=== PATIENT | female | born 1945 | race Caucasian/White ===

== ENCOUNTER → 2023-07-31 12:52 | Outpatient (REF) | payer MEDICARE, OTHER, SELFPAY | LOC: HWRAD 12:52 | PROVIDERS: ATTENDING PHYSICIAN Internal Medicine Geriatric Medicine | DX: Z12.31 Encounter for screening mammogram for malignant neoplasm of breast (principal); Z78.0 Asymptomatic menopausal state | CPT/HCPCS: 77063; 77067; 77080 ==

== ENCOUNTER → 2023-11-27 13:20 | Outpatient (REF) | payer MEDICARE, OTHER, SELFPAY | LOC: HWRAD 13:20 | PROVIDERS: ATTENDING PHYSICIAN Internal Medicine Rheumatology; FAMILY PHYSICIAN Internal Medicine Geriatric Medicine | DX: M15.9 Polyosteoarthritis, unspecified (principal); M25.50 Pain in unspecified joint; M81.0 Age-related osteoporosis without current pathological fracture | CPT/HCPCS: 72040; 72110; 73030; 73560; 73565 ==

== ENCOUNTER 2024-02-11 17:40 | Inpatient (IN) | payer MEDICARE, OTHER, SELFPAY ==
[2024-02-11] VITALS (14 sets, daily range): BP systolic 88–184; BP diastolic 58–91; PULSE 81–106; BMI 19.6; BMI 19.3
--- NOTE | 2024-02-11 12:23 | ED.GENMED ---
History of Present Illness
General
Chief Complaint: Fall
Source: patient and family (daughter at bedside)
Exam Limitations: altered mental status
Time Seen by Provider: 02/11/24 12:02
History of Present Illness
History of Present Illness:
78 yo female from [facility] w h/o HTN, GERD, anxiety/depression, states 'I took a shower, got out, got dizzy and collapsed, I hit the wall.' Denies LOC. Has headache, neck pain, denies CP, SOB, abdominal pain.
Past History
Past History
ED Past Medical History: GERD, HTN, Psychiatric (depression, anxiety) and Other (Chronic neck issues, Duodenitis, hyponatremia)
ED Past Surgical History: Orthopedic (orthovisc injections, ILESI to C7-T1 x 3)
Social History
Tobacco: Non-smoker
Alcohol: None
Personal:
Living: assisted living
Employment: Retired
Family History
Family History: Other (reviewed and non-contributory)
Review of Systems
Review of Systems
Allergies reviewed?: Yes
All Other Systems: ROS reviewed and negative except as documented in HPI and ROS
Constitutional: Denies fever
Respiratory: Denies trouble breathing
Cardiac: Denies chest pain or syncope
ABD/GI: Denies abdominal pain, nausea, vomiting or diarrhea
: Denies dysuria
Musculoskeletal: Reports neck pain; Denies edema or back pain
Skin: Reports no symptoms
Neurological: Reports headache; Denies dizzy, weakness or numbness
Psychiatric: Reports anxiety
Phy Exam
Physical Exam
Physical Exam:
GENERAL: No acute distress. A&Ox3.
CONSTITUTIONAL: Afebrile.
EYES: clear, conjunctivae normal, PERRL
ENMT: moist mucus membranes, Pharynx nl, TMs normal
RESPIRATORY: Regular respirations, nonlabored, lungs clear.
CARDIOVASCULAR: Regular rate and rhythm, no murmurs, no rubs.
GI: Soft, nontender, normal BS
MUSCULOSKELETAL: Body is stiff with movements, needs lots of encouragement to move. Bilateral paracervical tenderness posteriorly. Axial load negative. Well perfused.
SKIN: Warm, dry, pink
PSYCH: Very anxious mood and affect. Well kept, slow to answer, hesitates, seems confused and unable to articulate answers.
NEUROLOGIC: Awake, alert. Cannot state where she is. CN 2-12 intact. She is tremulous, holds body stiffly. Strength equal throughout with hand grasps 3/5, dorsi and plantar flexion 3/5. Follows all commands. No focal neurological deficits
Course
Orders/Labs/Results
Orders:
Orders
02/11/24 12:02
Electrocardiogram (*1) Urgent
Reason for Study: Syncope
EKG- Treatment ONCE
02/11/24 12:04
Complete Blood Count/With Diff Urgent
Troponin I Urgent
02/11/24 12:20
CT Head W/o Iv Contrast Urgent
Comment:
Reason For Exam: confused after fall
Cervical Spine wo Contrast CT [CT Cervical Spine W/o Iv Contr] Urgent
Comment:
Reason For Exam: pain after fall
02/11/24 13:28
Comprehensive Metabolic Panel Urgent
Serum Osmolality Urgent
Comment: ADD ON
TSH Reflex To Free T4 Urgent
Comment: ADD ON
02/11/24 13:47
Ketorolac [Toradol] 15 mg IV NOW STA
02/11/24 13:48
Straight cath- Treatment ONCE
Ketorolac [Toradol] 15 mg .ROUTE .STK-MED ONE
02/11/24 14:00
Osmolality, Random Urine Urgent
Date Specimen was Collected: 02/11/24
Time Specimen was Collected: 12:26
Comment: ADD ON
Urinalysis Reflex To Culture Urgent
Date Specimen was Collected: 02/11/24
Time Specimen was Collected: 12:26
Urine Sodium Urgent
Date Specimen was Collected: 02/11/24
Time Specimen was Collected: 12:26
Comment: ADD ON
02/11/24 14:25
Sacrum/Coccyx 2 View CR [CR Sacrum/coccyx Min 2 View] Urgent
Comment:
Reason For Exam: pain after fall
02/11/24 16:12
Orthostatic VS- Treatment ONCE
02/11/24 16:41
0.9% Sodium Chloride 1000 ml [Nss] 1,000 ml IV BOLUS
02/11/24 16:47
Add On- LAB Urgent
Tests Added?: TSH w/Reflex
02/11/24 16:48
Add On- LAB Urgent
Tests Added?: urine osmo, serum osmo, urine sodium
02/11/24 17:01
NEPHROLOGY CONSULT Urgent
Consulting Provider: Val Logan
Was physician already notified: Yes
Reason for consult: symptomatic hyponatremia
02/11/24 17:29
Admit/Transfer Patient As Directed
Co-Sign Provider:
Level of Care: Inpatient admission
Assign to:: Telemetry
Physician / Group: Harman
Diagnosis: Orthostatic Hypotension
Reason for Telemetry: Arrhythmia
Date to Stop Telemetry: 02/14/24
Time to Stop Telemetry: 11:00
Reason for Hospitalization: IVFs
Expected length of stay greater than two midnights?: Yes
ELOS- Estimated Length of Stay in days: 3
I certify the patient meets the requirements for IP care: Yes
02/11/24 17:30
Code Status As Directed
Resuscitation Status: Full Code
PRN Pain Medication Management As Directed
May give lesser potent ordered pain med per pt: Yes
preference::
Protocol:: Medication orders for pain may be administered in a
manner that supports deferring to patient preference
when the pt is:
- Requesting an ordered lesser potent pain medication.
Least to most potent pain medications are defined
as: acetaminophen < NSAID < tramadol < opioids
(morphine, oxycodone, hydromorphone).
- Requesting a lesser dose of the same medication IF
ORDERED.
- Requesting a less intrusive route of administration
if both routes are prescribed by the provider (PO <
IV).
02/14/24 11:00
DC Protocol for Telemetry ONCE
Abnormal Lab Results
02/11/24 02/11/24 02/11/24
12: 13:28 14:00
RBC 4.07 L 10^6/uL
(4.20-5.40)
Hgb 11.9 L g/dL
(12.0-16.0)
Hct 35.2 L %
(37.0-47.0)
MPV 11.1 H fL
(7.4-10.4)
Immature Gran % 0.6 H %
(0-0.5)
Sodium 128 L mmol/L
(135-145)
Chloride 91 L mmol/L
(98-107)
BUN 20 H mg/dl
(7-17)
Glucose 103 H mg/dl
(70-99)
Serum Osmolality 267 L mOsm/kg
(275-300)
Urine Sodium 134 H mmol/L
(30-90)
02/11/24 12:04
02/11/24 13:28
Vital Signs
Initial and Last Documented VS:
Initial Vital Signs
Pulse BP
77 150/77
02/11/24 11:47 02/11/24 11:47
Last Documented Vital Signs
Temp Pulse Resp BP Pulse Ox
96.8 F L 84 23 157/70 95
02/11/24 12:00 02/11/24 18:15 02/11/24 12:00 02/11/24 18:00 02/11/24 18:15
MDM/Problems Addressed
Differential Diagnosis Includes:
Hyponatremia, toxic metabolic encephalopathy, dehydration, UTI
MDM/Problems Addressed:
78 yo female from [facility] w h/o HTN, GERD, anxiety/depression, SIADH/hyponatremia, states 'I took a shower, got out, got dizzy and collapsed, I hit the wall.' Denies LOC. Has headache, neck pain, denies CP, SOB, abdominal pain.
Daughter at bedside agrees she is not acting herself, states 'she is extremely anxious' has history of low sodium.
febrile, VSS
1:30 PM:
Radiology report read: Head CT and cervical spine CT show no acute abnormalities
CBC with no clinically significant abnormality
CMP hemolyzed and is being redrawn
In to re evaluate pt. Updated daughter and pt on results
Pt is much more lucid, calm, making sense. Has neck pain and headache. Has difficulty swallowing pills typically. Toradol IV ordered.
She is drinking water.
2:05 p.m.
CMP: Na 128, Cl 91 this is her baseline
On Venlafaxine chronically, not thought to be cause of hyponatremia per Nephrology note of 04/01/22
Has used Samsca in the past.
Pt has chronic sacral pain since injury many years ago, is requesting xray of tailbone as it hurts worse after this fall.
Palpation of this area elicits no significant pain
Xray sacrum/coccyx shows nothing acute
4:45 p.m.
Pt dizzy OOB, positive orthostatics
Plan: Admit with symptomatic hyponatremia,
Hospitalist notified of admission.
Nephrology consult in.
*EKG
EKG Intrepretation Date: 02/11/24
Interpretation: normal
Heart Rate: 84
Rate: normal
Rhythm: sinus
Coleridge: normal axis
Interval: normal interval
QRS Pattern: normal QRS
Ischemia: no ischemia
*Critical Care Note
Total Time (30-74mins, 75-104mins- exclusive of procedures): Not Applicable
ED Attending Note
-
Portions of this chart may have been created with voice recognition software.� Occasional wrong word or��sound alike� substitutions may have occurred due to the inherent limitations of voice recognition software.
Discharge Plan
Departure
Patient Disposition: Admit
Date of Disposition: 02/11/24
Time of Disposition: 16:42
Admit to: Med/Surg
Presentation/result/management discussed w/ accepting MD/DO: Hospitalist
Condition: Fair
Discharge Problem:
Hyponatremia, Fall, Orthostatic dizziness
Interventions
Interventions:
*Risk Screen - Suicide Last Done: 02/11/24 11:47
*General Assessment Last Done: 02/11/24 11:47
*Neglect/Abuse Screening Last Done: 02/11/24 11:47
ED- Fall Risk Assessment Last Done: 02/11/24 18:11
*ED COVID-19 Vaccine History Last Done: 02/11/24 12:00
ED-Musculoskeletal Assessment Last Done: 02/11/24 12:01
ED- Neurological Assessment Last Done: 02/11/24 11:47
ED-Skin Assessment Last Done: 02/11/24 11:47
[2024-02-11 12:26] LABS: % Basophils 0.5 % (0-2); % Eosinophils 1.8 % (0-6); % Immature Granulocytes 0.6 % (0-0.5); % Lymphocytes 22.2 % (20.5-51.1); % Monocytes 8.5 % (1.7-9.3); % Neutrophils 66.4 % (42.2-75.2); Absolute Eosinophils 0.1 10^3/uL (0-0.7); Absolute Lymphocytes 1.4 10^3/uL (1.2-3.4); Absolute Monocytes 0.5 10^3/uL (0.1-0.6); Absolute Neutrophils 4.2 10^3/uL (1.4-6.5); Hematocrit 35.2 % (37.0-47.0); Hemoglobin 11.9 g/dL (12.0-16.0); Mean Corp Hgb Conc. 33.8 g/dL (33.0-37.0); Mean Corpuscular Hgb 29.2 pg (27.0-31.0); Mean Corpuscular Volume 86.5 fL (81.0-99.0); Mean Platelet Volume 11.1 fL (7.4-10.4); Nucleated Red Blood Cells % 0 %; Platelet Count 175 10^3/uL (130-400); Red Blood Cell Count 4.07 10^6/uL (4.20-5.40); Red Cell Dist. Width 13.1 % (11.5-14.5); White Blood Cell Count 6.3 10^3/uL (4.8-10.8)
[2024-02-11] MEDS: TORADOL 15 MG IV (13:50)
[2024-02-11 14:02] LABS: ALT (SGPT) 16 U/L (0-35); AST (SGOT) 27 U/L (14-36); Albumin 4.7 g/dl (3.5-5.0); Alkaline Phosphatase 64 U/L (38-126); Blood Urea Nitrogen 20 mg/dl (7-17); Calcium 9.3 mg/dl (8.4-10.2); Carbon Dioxide 25 mmol/L (22-30); Chloride 91 mmol/L (98-107); Estimated Creatinine Clearance 68 ml/min; Glucose 103 mg/dl (70-99); Potassium 4.3 mmol/L (3.5-5.1); Sodium 128 mmol/L (135-145); Total Bilirubin 0.5 mg/dl (0.2-1.3); Total Protein 7.7 g/dl (6.3-8.2); eGFR > 60.00
[2024-02-11 14:10] LABS: Troponin I < 0.012 ng/ml
[2024-02-11 14:14] LABS: Urine Albumin Trace (Neg - Trace); Urine Bilirubin Negative (Negative); Urine Character Clear (Clear); Urine Color Yellow; Urine Glucose Negative (Negative); Urine Ketone Negative (Negative); Urine Leukocyte Negative (Negative); Urine Nitrite Negative (Negative); Urine Occult Blood Negative (Negative); Urine Urobilinogen Negative (Neg - 1+)
--- NOTE | 2024-02-11 16:49 | HPS.HSE ---
Family Physician
-
Family Physician: Jody Cervantes
Chief Complaint
-
Dizziness and Fall
History of Present Illness
Patient is a 78 y/o female past medical history of hypertension, hyponatremia, anxiety and BPPV who presents with dizziness resulting in a fall. Patient was getting out of the shower when developed dizziness causing her to loss her balance and
fall. She states during the fall she hit head on the wall. Eventually she was able to reach her call button, EMS arrived and they transported her to the emergency department for evaluation. While in the ED patient was found to be orthostatic.
During my evaluation patient reports significant dizziness with head movements. 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 She follows a strict fluid restriction at home due to her prior history of hyponatremia.
Medical History
Past Medical History
Past Medical History: Reports Other
Additional Past Medical History:
Essential Hypertension
Chronic Hyponatremia
Anxiety/Depression
GERD
BPPV
Spinal Stenosis
Glaucoma
Osteoporosis
Past Surgical History: Reports Other
Additional Past Surgical History:
Right Shoulder Surgery
Left Knee Surgery
Social History
Tobacco: Non-smoker
Personal:
Living: Other ([facility])
Family History
Family History: Not pertinent
Allergies / Home Medications
Allergies reflects when Allergies were last updated in [employer].
Home Medications with original date entered in [employer]
Allergy/Medication List:
Allergies
Allergy/AdvReac Type Severity Reaction Status Date / Time
amoxicillin [From Augmentin] Allergy DIARRHEA Verified 02/18/23 09:11
caffeine Allergy ABDOMINAL Verified 02/18/23 09:11
PAIN
cephalexin [From Keflex] Allergy Nausea / Verified 02/18/23 09:11
Vomiting
clavulanic acid Allergy DIARRHEA Verified 02/18/23 09:11
[From Augmentin]
grass pollen Allergy Unknown Verified 02/18/23 09:11
mold Allergy Unknown Verified 02/18/23 09:11
Sulfa (Sulfonamide Allergy HEADACHE Verified 02/18/23 09:11
Antibiotics)
Tetracyclines Allergy Nausea / Verified 02/18/23 09:11
Vomiting
Home Medications
fluticasone propionate 50 mcg/actuation nasal spray,suspension 1 spray intranasal DAILY PRN congestion 03/31/22
latanoprost 0.005 % eye drops 1 drp BOTH EYES HS 03/31/22
pantoprazole 40 mg tablet,delayed release 40 mg PO QPM 03/31/22
venlafaxine 37.5 mg capsule,extended release 24 hr 37.5 mg PO HS 03/31/22
venlafaxine 75 mg capsule,extended release 24 hr 75 mg PO HS 03/31/22
Bifidobacterium infantis 4 mg capsule (Align (B.infantis)) 4 mg PO NOON 02/11/24
acetaminophen 325 mg tablet (Tylenol) 650 mg PO Q4HPRN PRN mild pain 02/11/24
cholecalciferol (vitamin D3) 25 mcg (1,000 unit) tablet (Vitamin D3) 25 mcg PO NOON 02/11/24
cyanocobalamin (vitamin B-12) 1,000 mcg tablet 1,000 mcg PO NOON 02/11/24
denosumab 60 mg/mL subcutaneous syringe (Prolia) 60 mg SC [id number] 02/11/24
rizatriptan 10 mg tablet 0 mg PO .COMPLEX 02/11/24
sucralfate 1 gram tablet (Carafate) 1 g PO DAILY@1000 02/11/24
Review of Systems
-
A 12 point ROS was completed and negative except as noted: Yes
Constitutional: Denies Chills
Respiratory: Denies Cough or Trouble Breathing
Cardiac: Denies Chest Pain
Physical Exam
Vital Signs
Vital Signs
Temp Pulse Resp BP Pulse Ox
96.8 F L 77 23 155/73 99
02/11/24 12:00 02/11/24 14:30 02/11/24 12:00 02/11/24 14:00 02/11/24 14:30
Physical Exam
General: Comfortable and Conversant
HEENT: NormoCephalic, Anicteric and Atraumatic
Respiratory: Clear and Non Labored Respirations
Cardiac: S1/S2 and Regular Rhythm
GI: Soft and Non Tender
Rectal: Deferred by Provider
Musculoskeletal: No Clubbing, No Cyanosis and No Edema
Skin: Warm and Dry
Neuro: Awake, Alert, Oriented and Nonfocal/grossly intact
Psych: Calm
Laboratory Results
-
02/11/24 12:04
02/11/24 13:28
Laboratory Results
Total Bilirubin 0.5 mg/dl (0.2-1.3) 02/11/24 13:28
AST 27 U/L (14-36) 02/11/24 13:28
ALT 16 U/L (0-35) 02/11/24 13:28
Alkaline Phosphatase 64 U/L (38-126) 02/11/24 13:28
Troponin I < 0.012 ng/ml 02/11/24 12:04
Data Reviewed
-
CT Scan: Report Reviewed by me
Lab Data: Labs Reviewed by me
Impression/Plan
-
Orthostatic Hypotension
-Continue IVFs
-Monitor orthostatic VS
-Add MARIA D Stockings
Chronic Hyponatremia
-Sodium at baseline
BPPV
-Patient reporting dizziness worse with movement
-Add meclizine PRN
-Consult PT/OT
Anxiety/Depression
-Continue venlafaxine
GERD
-Continue Protonix and Carafate
DVT proph: SCDs
Code Status: Full Code
[2024-02-11] MEDS: NSS 1000 IV ×2 (16:55→21:58)
[2024-02-11 17:08] LABS: Osmolality Urine 515 mOsm/kg (300-900)
[2024-02-11 17:15] LABS: Osmolality Serum 267 mOsm/kg (275-300)
[2024-02-11 17:26] LABS: Urine Sodium 134 mmol/L (30-90)
[2024-02-11 17:50] LABS: TSH Reflex To Free T4 1.36 uIU/ml (0.47-4.68)
--- NOTE | 2024-02-11 17:58 | W.PN.UPDATE ---
Update Note
Progress Note Update
HPI: 78 y/o female past medical history of hypertension, hyponatremia, anxiety and BPPV; who presented with dizziness resulting in a fall.
Patient was getting out of the shower when developed dizziness causing her to loss her balance and fall. She states during the fall she hit head on the wall. Eventually she was able to reach her call button, EMS arrived and they transported her to
the emergency department for evaluation.
While in the ED patient was found to be orthostatic. 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 She follows a strict fluid restriction at home due to her prior history of hyponatremia.
A/P:
# Orthostatic Hypotension
Continue IVFs
Monitor orthostatic VS
Add MARIA D Stockings
# Chronic Hyponatremia
Sodium at baseline
Renal consulted by ED
# BPPV
Patient reporting dizziness worse with movement
Add meclizine PRN
Consult PT/OT
# Anxiety/Depression
Continue venlafaxine
# GERD
Continue Protonix and Carafate
DVT proph: SCDs
Code Status: Full Code
--- NOTE | 2024-02-11 20:00 | TRANSFER ---
pt arrived from ED via stretcher accompanied by ED staff. pt walked from stretcher to bed with assistance and RW. no complaints of dizziness upon ambulating. orthostatic VS completed- BP laying 184/91, HR 81, sitting 179/81, HR 82, standing 148/80,
HR 94. other VSS at this time. pt AAOx3, call bateman within reach, bed alarm placed. will continue to monitor.
[2024-02-11] MEDS: PROTONIX 40 MG PO (20:35)
[2024-02-11] MEDS: TYLENOL 650 MG PO (20:35)
[2024-02-11] MEDS: EFFEXOR XR 75 MG PO (20:36)
[2024-02-11] MEDS: EFFEXOR XR 37.5 MG PO (20:36)
[2024-02-11] MEDS: XALATAN OPHTHALMIC SOLUTION 1 DROP OPHTH (22:02)
[2024-02-12] VITALS (9 sets, daily range): BP systolic 132–169; BP diastolic 71–85; PULSE 80–98; O2SAT 97; BMI 19.2
[2024-02-12 08:36] LABS: Hematocrit 35.9 % (37.0-47.0); Hemoglobin 12.2 g/dL (12.0-16.0); Mean Corpuscular Hgb 30.1 pg (27.0-31.0); Mean Corpuscular Volume 88.6 fL (81.0-99.0); Mean Platelet Volume 11.6 fL (7.4-10.4); Platelet Count 204 10^3/uL (130-400); Red Blood Cell Count 4.05 10^6/uL (4.20-5.40); Red Cell Dist. Width 13.1 % (11.5-14.5); White Blood Cell Count 5.7 10^3/uL (4.8-10.8)
[2024-02-12 08:55] LABS: Blood Urea Nitrogen 15 mg/dl (7-17); Calcium 7.4 mg/dl (8.4-10.2); Carbon Dioxide 23 mmol/L (22-30); Chloride 97 mmol/L (98-107); Estimated Creatinine Clearance 67 ml/min; Glucose 86 mg/dl (70-99); Potassium 3.6 mmol/L (3.5-5.1); Sodium 129 mmol/L (135-145); eGFR > 60.00
[2024-02-12] MEDS: TYLENOL 650 MG PO ×3 (08:58→20:44)
[2024-02-12] MEDS: CARAFATE 1 GRAM PO ×2 (08:58→09:53)
--- NOTE | 2024-02-12 09:06 | W.PN.HOSP.TC ---
Today's Communication/Plan
-
see A/P
Assessment / Plan
Assessment / Plan
HPI: 78 y/o female past medical history of hypertension, hyponatremia, anxiety and BPPV; who presented with dizziness resulting in a fall.
Patient was getting out of the shower when developed dizziness causing her to loss her balance and fall. She states during the fall she hit head on the wall. Eventually she was able to reach her call button, EMS arrived and they transported her to
the emergency department for evaluation.
While in the ED patient was found to be orthostatic. 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 She follows a strict fluid restriction at home due to her prior history of hyponatremia.
A/P:
# Mechanical fall likely 2/2 Orthostatic Hypotension
# Acute on chronic coccyx pain following fall
CT head , CT Cervical spine and Sacrum/Coccyx XR no acute abnormality or fracture
Pain control with Tylenol PRN, add lidocaine patch to coccyx area for local pain control
s/p IVFs
Added MARIA D Stockings
Monitor orthostatic VS
PT OT eval
# Chronic Hyponatremia
# SAIDH
Sodium at baseline
TSH WNL at 1.36
Renal consulted by ED
# BPPV
Patient reporting dizziness worse with movement
Added meclizine PRN
Consult PT/OT
# Anxiety/Depression
Continue venlafaxine
# GERD
Continue Protonix and Carafate
DVT proph: SCDs
Code Status: Full Code
DW RN
left voicemail to daughter
Anticipated Discharge: 24 - 48 hours
Subjective/Interval History
-
Date of Service: February 12, 2024
Objective Data
-
Labs:
Laboratory Results
02/12/24
07:24
WBC 5.7
Hgb 12.2
Hct 35.9 L
Plt Count 204
Sodium 129 L
Potassium 3.6
Chloride 97 L
Carbon Dioxide 23
BUN 15
Creatinine 0.5 L
Glucose 86
Calcium 7.4 L D
Vital Signs:
Vital Signs
Temp Pulse Resp BP Pulse Ox
36.5 C 84 18 158/85 99
02/12/24 08:14 02/12/24 08:14 02/12/24 08:14 02/12/24 08:14 02/12/24 08:14
I&O
02/11/24 02/12/24 02/13/24
06:59 06:59 06:59
Intake Total 1200 / 1200
Output Total 550 / 550 150 / 150
Balance 650 / 650 -150 / -150
Review of Systems
-
Musculoskeletal: Reports Other (tail bone mild pain)
Physical Exam
-
General: Well Developed, Well Nourished, No Apparent Distress, Comfortable and Conversant
HEENT: Normocephalic, Atraumatic and Moist Mucous Membranes
Respiratory: Clear to Auscultation and Non Labored Respirations; Negative Accessory Resp Muscle Use
Cardiac: Regular Rhythm and S1/S2
GI: Soft, Nontender and Nondistended
Musculoskeletal: No Clubbing, No Cyanosis and No Edema
Neuro: Awake and Alert
Psych: Calm and Intact Judgement/Insight
Data Reviewed
-
Diagnostic Radiology: Report Reviewed by me
CT Scan: Report Reviewed by me
Labs: Labs Reviewed by me
[2024-02-12] MEDS: LIDOCAINE 4% PATCH 1 PATCH TOPICAL (09:53)
[2024-02-12 09:54] LABS: Urine Albumin 2+ (Neg - Trace); Urine Bilirubin Negative (Negative); Urine Character Bloody (Clear); Urine Color Red; Urine Glucose Negative (Negative); Urine Ketone Trace (Negative); Urine Leukocyte 2+ (Negative); Urine Nitrite Negative (Negative); Urine Occult Blood 4+ (Negative); Urine Urobilinogen Negative (Neg - 1+); Urine pH 6.5 (5.0-9.0)
--- NOTE | 2024-02-12 10:02 | PTCARENOTE ---
Addendum entered by Tarah Paulino RN 02/12/24 15:03:
Patient with UTI as per UA. Urine culture pending.
Original Note:
Patient with complaints of painful urination. Patient has bloody urine. MD made aware. Urine culture sent. Started on Levoquin. Complaints of pain in lower back. Lidocaine patch ordered and applied. Tylenol given as ordered.
[2024-02-12 10:24] LABS: Urine Bacteria Many (Negative); Urine Red Blood Cell >100 /HPF (0-2); Urine White Cell >100 /HPF (0-5)
[2024-02-12 10:25] LABS: Urine Squamous Cell SEEN /LPF (Few)
[2024-02-12] MEDS: LEVAQUIN 150 IV (10:32)
[2024-02-12] MEDS: NSS 1000 IV (11:24)
--- NOTE | 2024-02-12 14:28 | W.CON.NEPH ---
Consultation
-
Date/Time Consultation Requested: 02/11/24 1701
Date/Time Consultation Performed: 02/12/24 1415
Requesting Provider: Carly Mayo
Performing Provider: Val Shay
Reason for Consultation: hyponatremia
Medical History
-
Chief Complaint: Dizzniess and fall
History of Present Illness:
78 y/o female past medical history of hypertension, hyponatremia on FR odium baseline 128-130, anxiety/depression on Venlafaxine, osteoporosis on Prolia, GERD on carafate, PPI and BPPV who presents with dizziness resulting in a fall in the bathroom.
Patient was getting out of the shower when developed dizziness causing her to loss her balance and hit head on the wall. Eventually she was able to reach her call button and EMS transported her to the emergency department for evaluation. While in
the ED patient was found to be orthostatic, received 1 L of normal saline bolus. She had done vestibular rehab for BPP in the past.She reports losing her on the January 22. She thinks might be emotionally depressed from it, reports
compliance with the fluid restriction. Labs noted sodium of 128, cr 0.6. Does report mild gross hematuria since last night. Has no CP or sob no fever or chills. No abd pain. no n/v.
Past Medical History
Essential Hypertension
Chronic Hyponatremia
Anxiety/Depression
GERD
BPPV
Spinal Stenosis
Glaucoma
Osteoporosis
Past Surgical History: Other (Right Shoulder Surgery Left Knee Surgery)
Social History
Tobacco: Non-Smoker
Alcohol: None
Personal:
Living: Assisted Living ([facility])
Family History
Family History: Not Pertinent
Allergies / Home Medications
Allergy/AdvReac Type Severity Reaction Status Date / Time
amoxicillin [From Augmentin] Allergy DIARRHEA Verified 02/18/23 09:11
caffeine Allergy ABDOMINAL Verified 02/18/23 09:11
PAIN
cephalexin [From Keflex] Allergy Nausea / Verified 02/18/23 09:11
Vomiting
clavulanic acid Allergy DIARRHEA Verified 02/18/23 09:11
[From Augmentin]
grass pollen Allergy Unknown Verified 02/18/23 09:11
mold Allergy Unknown Verified 02/18/23 09:11
Sulfa (Sulfonamide Allergy HEADACHE Verified 02/18/23 09:11
Antibiotics)
Tetracyclines Allergy Nausea / Verified 02/18/23 09:11
Vomiting
�Medication �Instructions �Recorded �Confirmed �Type
fluticasone propionate 50 1 spray intranasal DAILY PRN 03/31/22 02/11/24 History
mcg/actuation nasal congestion
spray,suspension
latanoprost 0.005 % eye drops 1 drp BOTH EYES HS 03/31/22 02/11/24 History
pantoprazole 40 mg tablet,delayed 40 mg PO QPM 03/31/22 02/11/24 History
release
venlafaxine 37.5 mg 37.5 mg PO HS 03/31/22 02/11/24 History
capsule,extended release 24 hr
venlafaxine 75 mg capsule,extended 75 mg PO HS 03/31/22 02/11/24 History
release 24 hr
Bifidobacterium infantis 4 mg 4 mg PO NOON 02/11/24 02/11/24 History
capsule (Align (B.infantis))
acetaminophen 325 mg tablet 650 mg PO Q4HPRN PRN mild pain 02/11/24 02/11/24 History
(Tylenol)
cholecalciferol (vitamin D3) 25 25 mcg PO NOON 02/11/24 02/11/24 History
mcg (1,000 unit) tablet (Vitamin
D3)
cyanocobalamin (vitamin B-12) 1,000 mcg PO NOON 02/11/24 02/11/24 History
1,000 mcg tablet
denosumab 60 mg/mL subcutaneous 60 mg SC [id number] 02/11/24 02/11/24 History
syringe (Prolia)
rizatriptan 10 mg tablet 0 mg PO .COMPLEX 02/11/24 02/11/24 History
sucralfate 1 gram tablet (Carafate) 1 g PO DAILY@1000 02/11/24 02/11/24 History
Review of Systems
-
All complete 12 point review of system have been inquired and found negative other than stated in HPI
Physical Exam
Vital Signs
Vital Signs
Temp Pulse Resp BP Pulse Ox
97.9 F 98 18 141/82 99
02/12/24 12:11 02/12/24 12:11 02/12/24 12:11 02/12/24 12:11 02/12/24 12:11
Lab Results
WBC 5.7 10^3/uL (4.8-10.8) 02/12/24 07:24
RBC 4.05 10^6/uL (4.20-5.40) L 02/12/24 07:24
Hgb 12.2 g/dL (12.0-16.0) 02/12/24 07:24
Hct 35.9 % (37.0-47.0) L 02/12/24 07:24
Plt Count 204 10^3/uL (130-400) 02/12/24 07:24
Sodium 129 mmol/L (135-145) L 02/12/24 07:24
Potassium 3.6 mmol/L (3.5-5.1) 02/12/24 07:24
Chloride 97 mmol/L (98-107) L 02/12/24 07:24
Carbon Dioxide 23 mmol/L (22-30) 02/12/24 07:24
BUN 15 mg/dl (7-17) 02/12/24 07:24
Creatinine 0.5 mg/dL (0.6-1.0) L 02/12/24 07:24
eGFR > 60.00 02/12/24 07:24
Glucose 86 mg/dl (70-99) 02/12/24 07:24
Calcium 7.4 mg/dl (8.4-10.2) L D 02/12/24 07:24
Albumin 4.7 g/dl (3.5-5.0) 02/11/24 13:28
ct head;
IMPRESSION:
No acute intracranial abnormality.
No acute abnormalities within the cervical spine.
Physical Exam
General: Awake, Alert, Oriented, AOx3, No Distress and Nontoxic
HEENT: EOMI, Anicteric, Facial Symmetry and Neck Supple
Respiratory: Clear, Normal Excursion and Nonlabored Respirations
Cardiac: S1/S2 and Regular Rate/Rhythm
Breast: Deferred by me
Abdomen: Soft, Nontender and Nondistended
Musculoskeletal: No Cyanosis and No Edema
Skin: No Rash
Neuro: Nonfocal/Grossly Intact
Psych: Mood/afflect pleasant, Insight/judgement good and Appropriate
Data Reviewed
-
Labs: Labs Reviewed by me and Discussed with Patient
Assessment/Plan
-
IMP:
Mechanical fall likely 2/2 Orthostatic Hypotension
Chronic Hyponatremia- SAIDH
hematuria-suspected UTI
BPPV
Anxiety/Depression
GERD
Spinal Stenosis
Glaucoma
Osteoporosis
h/o vit D def
h/o migraine
Plan:
A/w fall, orthostatic in ER s/p IVF
chr hyponatremia seem to be stable at baseline
unlikely is the cause of her symptoms
orthostatics improved this am , remains on IVF
encourage solute intake
maintain FR 48 ounces/day
cont TEDs, check cortisol
she is on Velafaxine(has association with SIADH)-follow up with her PCP for alternative out pt
follow calcium level, not sure if accurate, resume vit D
abx for UTI, await U cx, hematuria seem to improve
labs in am
d/w pt
[2024-02-12] MEDS: PROTONIX 40 MG PO (16:49)
[2024-02-12] MEDS: VITAMIN D3 (cholecalciferol) 25 MCG PO (16:49)
[2024-02-12] MEDS: EFFEXOR XR 75 MG PO (20:41)
[2024-02-12] MEDS: EFFEXOR XR 37.5 MG PO (20:41)
[2024-02-12] MEDS: XALATAN OPHTHALMIC SOLUTION 1 DROP OPHTH (20:42)
[2024-02-13] VITALS (7 sets, daily range): BP systolic 129–169; BP diastolic 61–90; PULSE 78–84; BMI 19.2
[2024-02-13] MEDS: NSS 1000 IV (01:06)
--- NOTE | 2024-02-13 08:44 | W.PN.HOSP.TC ---
Today's Communication/Plan
-
see A/P
Assessment / Plan
Assessment / Plan
HPI: 78 y/o female past medical history of hypertension, hyponatremia, anxiety and BPPV; who presented with dizziness resulting in a fall.
Patient was getting out of the shower when developed dizziness causing her to loss her balance and fall. She states during the fall she hit head on the wall. Eventually she was able to reach her call button, EMS arrived and they transported her to
the emergency department for evaluation.
While in the ED patient was found to be orthostatic. 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 She follows a strict fluid restriction at home due to her prior history of hyponatremia.
A/P:
# Mechanical fall likely 2/2 Orthostatic Hypotension
# Acute on chronic coccyx pain following fall , no fracture
CT head , CT Cervical spine and Sacrum/Coccyx XR no acute abnormality or fracture
Pain control with Tylenol PRN, added lidocaine patch to coccyx area for local pain control
s/p IVFs
Added MARIA D Stockings
Monitor orthostatic VS
PT OT eval recc ? home PT
# Dysuria
Follow urine Cx
cont empiric Levaquin (noted pt has Keflex listed on allergy list)
# Chronic Hyponatremia
# SAIDH
Sodium at baseline
TSH WNL at 1.36
Follow random cortisol level
Cont fluid restriction at 48 oz/day
Appreciate Renal input
# BPPV
Patient reporting dizziness worse with movement
Added meclizine PRN
Consult PT/OT
# Anxiety/Depression
Continue venlafaxine
# GERD
Continue Protonix and Carafate
DVT proph: SCDs
Code Status: Full Code
DW daughter on the phone
Anticipated Discharge: Within 24 hours
Subjective/Interval History
-
Date of Service: February 13, 2024
Objective Data
-
Labs:
Laboratory Results
02/13/24
08:35
Sodium Pending
Potassium Pending
Chloride Pending
Carbon Dioxide Pending
BUN Pending
Creatinine Pending
Glucose Pending
Calcium Pending
Vital Signs:
Vital Signs
Temp Pulse Resp BP Pulse Ox
36.4 C 78 16 160/90 95
02/13/24 07:25 02/13/24 07:25 02/13/24 07:25 02/13/24 07:25 02/13/24 07:25
I&O
02/12/24 02/13/24 02/14/24
06:59 06:59 06:59
Intake Total 1200 / 1200 2080 / 2080
Output Total 550 / 550 3040 / 3040 550 / 550
Balance 650 / 650 -960 / -960 -550 / -550
Review of Systems
-
All other systems: Reviewed and negative
Genitourinary: Denies Dysuria (resolved )
Physical Exam
-
General: Well Developed, Well Nourished, No Apparent Distress, Comfortable and Conversant
HEENT: Normocephalic, Atraumatic and Moist Mucous Membranes
Respiratory: Clear to Auscultation and Non Labored Respirations; Negative Accessory Resp Muscle Use
Cardiac: Regular Rhythm and S1/S2
GI: Soft, Nontender and Nondistended
Musculoskeletal: No Clubbing, No Cyanosis and No Edema
Neuro: Awake and Alert
Psych: Calm and Intact Judgement/Insight
Data Reviewed
-
Diagnostic Radiology: Report Reviewed by me
CT Scan: Report Reviewed by me
Labs: Labs Reviewed by me
[2024-02-13] MEDS: LEVAQUIN 150 IV (09:20)
[2024-02-13] MEDS: VITAMIN D3 (cholecalciferol) 25 MCG PO (09:21)
[2024-02-13] MEDS: LIDOCAINE 4% PATCH 1 PATCH TOPICAL (09:21)
[2024-02-13] MEDS: CARAFATE 1 GRAM PO (09:21)
[2024-02-13 09:49] LABS: Blood Urea Nitrogen 7 mg/dl (7-17); Calcium 7.7 mg/dl (8.4-10.2); Carbon Dioxide 23 mmol/L (22-30); Chloride 96 mmol/L (98-107); Estimated Creatinine Clearance 67 ml/min; Glucose 93 mg/dl (70-99); Magnesium 2.1 mg/dl (1.6-2.3); Potassium 3.4 mmol/L (3.5-5.1); Sodium 129 mmol/L (135-145); eGFR > 60.00
[2024-02-13] MEDS: KCL 270 MEQ IV (10:35)
[2024-02-13] MEDS: ZOFRAN 4 MG IV (11:24)
--- NOTE | 2024-02-13 14:21 | W.PN.NEPH.PH ---
Today's Communication / Plan
-
Continue fluid restriction
Increase protein in her diet
Assessment/Plan
-
IMP:
Mechanical fall likely 2/2 Orthostatic Hypotension
Chronic Hyponatremia- SAIDH
hematuria-suspected UTI
BPPV
Anxiety/Depression
GERD
Spinal Stenosis
Glaucoma
Osteoporosis
h/o vit D def
h/o migraine
Plan:
A/w fall, orthostatic in ER s/p IVF
chr hyponatremia seem to be stable at baseline
unlikely is the cause of her symptoms
orthostatics improved this am ,
encourage solute intake in the form of high protein diet/avoid NSAIDs
maintain FR 48 ounces/day
cont TEDs, check cortisol
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
U cx, hematuria = E. coli awaiting sensitivities
labs in am
d/w pt and daughter at the bedside
Sodium 129 at her baseline between 127-129 dating back to 2019
-
-
Date of Service: February 13, 2024
CC / HPI / ROS
-
Chief Complaint:
Chronic hyponatremia
History of Present Illness:
Status post fall orthostatic normal cortisol level
Sodium stable at baseline chronic hyponatremia and SIADH
Review of Systems:
No chest pain shortness breath nausea vomiting
Labs
-
Labs:
WBC 5.7 10^3/uL (4.8-10.8) 02/12/24 07:24
RBC 4.05 10^6/uL (4.20-5.40) L 02/12/24 07:24
Hgb 12.2 g/dL (12.0-16.0) 02/12/24 07:24
Hct 35.9 % (37.0-47.0) L 02/12/24 07:24
Plt Count 204 10^3/uL (130-400) 02/12/24 07:24
Sodium 129 mmol/L (135-145) L 02/13/24 08:35
Potassium 3.4 mmol/L (3.5-5.1) L 02/13/24 08:35
Chloride 96 mmol/L (98-107) L 02/13/24 08:35
Carbon Dioxide 23 mmol/L (22-30) 02/13/24 08:35
BUN 7 mg/dl (7-17) 02/13/24 08:35
Creatinine 0.4 mg/dL (0.6-1.0) L 02/13/24 08:35
eGFR > 60.00 02/13/24 08:35
Glucose 93 mg/dl (70-99) 02/13/24 08:35
Calcium 7.7 mg/dl (8.4-10.2) L 02/13/24 08:35
Albumin 4.0 g/dl (3.5-5.0) 02/13/24 08:35
Physical Exam
-
Vital Signs:
Vital Signs
Temp Pulse Resp BP Pulse Ox
97.4 F 83 18 158/90 99
02/13/24 11:19 02/13/24 11:19 02/13/24 11:19 02/13/24 11:19 02/13/24 11:19
Cardiovascular:: Regular rate and rhythm
Respiratory:: Bilateral: Coarse
Lung Excursion:: Normal
Abdomen:: Nontender and Soft
Bowel Sounds:: Normal
Extremity Edema:: None: Bilateral:
Dillard Catheter: No
[2024-02-13] MEDS: PROTONIX 40 MG PO (17:18)
[2024-02-13] MEDS: TYLENOL 650 MG PO (19:36)
[2024-02-13] MEDS: XALATAN OPHTHALMIC SOLUTION 1 DROP OPHTH (21:21)
[2024-02-13] MEDS: EFFEXOR XR 75 MG PO (21:25)
[2024-02-13] MEDS: EFFEXOR XR 37.5 MG PO (21:25)
[2024-02-14 03:54] VITALS: BP 151/84
[2024-02-14 04:56] VITALS: BMI 19.6
[2024-02-14 07:30] VITALS: BP 107/64; BP 132/73; PULSE 93; PULSE 94
[2024-02-14] MEDS: VITAMIN D3 (cholecalciferol) 25 MCG PO (08:53)
[2024-02-14] MEDS: TYLENOL 650 MG PO (08:53)
[2024-02-14] MEDS: LIDOCAINE 4% PATCH TOPICAL (08:53)
[2024-02-14 09:32] LABS: Blood Urea Nitrogen 13 mg/dl (7-17); Carbon Dioxide 25 mmol/L (22-30); Chloride 97 mmol/L (98-107); Magnesium 2.1 mg/dl (1.6-2.3); Potassium 3.7 mmol/L (3.5-5.1); Sodium 129 mmol/L (135-145)
[2024-02-14 09:41] LABS: Estimated Creatinine Clearance 68 ml/min; Glucose 96 mg/dl (70-99); eGFR > 60.00
--- NOTE | 2024-02-14 10:05 | W.PN.HOSP.TC ---
Addendum entered and electronically signed by Carly Hammer MD 02/14/24 14:05:
total DC time 36 min
Original Note:
Today's Communication/Plan
-
see A/P
Assessment / Plan
Assessment / Plan
HPI: 78 y/o female past medical history of hypertension, hyponatremia, anxiety and BPPV; who presented with dizziness resulting in a fall.
Patient was getting out of the shower when developed dizziness causing her to loss her balance and fall. She states during the fall she hit head on the wall. Eventually she was able to reach her call button, EMS arrived and they transported her to
the emergency department for evaluation.
While in the ED patient was found to be orthostatic. 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 She follows a strict fluid restriction at home due to her prior history of hyponatremia.
A/P:
# Mechanical fall likely 2/2 Orthostatic Hypotension
# Acute on chronic coccyx pain following fall , no fracture
CT head, CT Cervical spine and Sacrum/Coccyx XR no acute abnormality or fracture
Pain control with Tylenol PRN, added lidocaine patch to coccyx area for local pain control
s/p IVFs
Added MARIA D Stockings
Monitor orthostatic VS
PT OT eval recc ? home PT
# Dysuria with UTI
urine Cx with E coli, sensitivity reviewed
Levaquin total 3 days (noted pt has Keflex listed on allergy list)
# Chronic Hyponatremia
# SAIDH
Sodium at baseline
TSH WNL at 1.36
Random cortisol level at 11
Cont fluid restriction at 48 oz/day
Appreciate Renal input
# BPPV
Patient reporting dizziness worse with movement
Added meclizine PRN
Consult PT/OT
# Anxiety/Depression
Continue venlafaxine
# GERD
Continue Protonix and Carafate
DVT proph: SCDs
Code Status: Full Code
Dispo: HH per PT
Left voicemail to daughter
Anticipated Discharge: Today
Subjective/Interval History
-
Date of Service: February 14, 2024
Objective Data
-
Labs:
Laboratory Results
02/14/24
08:33
Sodium 129 L
Potassium 3.7
Chloride 97 L
Carbon Dioxide 25
BUN 13
Creatinine 0.4 L
Glucose 96
Calcium 8.0 L
Vital Signs:
Vital Signs
Temp Pulse Resp BP Pulse Ox
36.4 C 84 17 132/73 97
02/14/24 07:30 02/14/24 07:30 02/14/24 07:30 02/14/24 07:30 02/14/24 07:30
I&O
02/13/24 02/14/24 02/15/24
06:59 06:59 06:59
Intake Total 2080 / 2080 360 / 360 300 / 300
Output Total 3040 / 3040 1375 / 1375 300 / 300
Balance -960 / -960 -1015 / -1015 0 / 0
Review of Systems
-
All other systems: Reviewed and negative
Genitourinary: Denies Dysuria (resolved )
Physical Exam
-
General: Well Developed, Well Nourished, No Apparent Distress, Comfortable and Conversant
HEENT: Normocephalic, Atraumatic and Moist Mucous Membranes
Respiratory: Clear to Auscultation and Non Labored Respirations; Negative Accessory Resp Muscle Use
Cardiac: Regular Rhythm and S1/S2
GI: Soft, Nontender and Nondistended
Musculoskeletal: No Clubbing, No Cyanosis and No Edema
Neuro: Awake and Alert
Psych: Calm and Intact Judgement/Insight
Data Reviewed
-
Diagnostic Radiology: Report Reviewed by me
CT Scan: Report Reviewed by me
Labs: Labs Reviewed by me
[2024-02-14] MEDS: LEVAQUIN 150 IV (10:39)
--- NOTE | 2024-02-14 11:15 | CM ---
Late note from 02/13/2024;
IA completed
Suzy lives at [facility] in an apartment. [employer] she has been (I) amb and adls; no DME. Pt seen by PT and OT with recommendation for VN at discharge.
CM met with Suzy today (02/14/2024) to discuss recommendation for VN. Pt requests [facility] which she had used in the past. Referral sent via [facility].
Plan: Discharge to home with [facility]
[2024-02-14 11:16] VITALS: BP 116/64
--- NOTE | 2024-02-14 11:32 | W.PN.NEPH.PH ---
Today's Communication / Plan
-
dc
Assessment/Plan
-
IMP:
Mechanical fall likely 2/2 Orthostatic Hypotension
Chronic Hyponatremia- SAIDH
hematuria-suspected UTI
BPPV
Anxiety/Depression
GERD
Spinal Stenosis
Glaucoma
Osteoporosis
h/o vit D def
h/o migraine
Plan:
follow BMP
ok to continue venlafaxine
abx per primary team, convert to po
dc planning
-
-
Date of Service: February 14, 2024
CC / HPI / ROS
-
Chief Complaint:
Chronic hyponatremia
History of Present Illness:
Status post fall orthostatic normal cortisol level
Sodium stable at baseline chronic hyponatremia and SIADH 129
BP stable
no more gross hematuria
Review of Systems:
No chest pain /SOB
Labs
-
Labs:
WBC 5.7 10^3/uL (4.8-10.8) 02/12/24 07:24
RBC 4.05 10^6/uL (4.20-5.40) L 02/12/24 07:24
Hgb 12.2 g/dL (12.0-16.0) 02/12/24 07:24
Hct 35.9 % (37.0-47.0) L 02/12/24 07:24
Plt Count 204 10^3/uL (130-400) 02/12/24 07:24
Sodium 129 mmol/L (135-145) L 02/14/24 08:33
Potassium 3.7 mmol/L (3.5-5.1) 02/14/24 08:33
Chloride 97 mmol/L (98-107) L 02/14/24 08:33
Carbon Dioxide 25 mmol/L (22-30) 02/14/24 08:33
BUN 13 mg/dl (7-17) 02/14/24 08:33
Creatinine 0.4 mg/dL (0.6-1.0) L 02/14/24 08:33
eGFR > 60.00 02/14/24 08:33
Glucose 96 mg/dl (70-99) 02/14/24 08:33
Calcium 8.0 mg/dl (8.4-10.2) L 02/14/24 08:33
Albumin 4.0 g/dl (3.5-5.0) 02/13/24 08:35
Physical Exam
-
Vital Signs:
Vital Signs
Temp Pulse Resp BP Pulse Ox
97.7 F 81 18 116/64 99
02/14/24 11:16 02/14/24 11:16 02/14/24 11:16 02/14/24 11:16 02/14/24 11:16
Cardiovascular:: Regular rate and rhythm
Respiratory:: Bilateral: Coarse
Lung Excursion:: Normal
Abdomen:: Nontender and Soft
Bowel Sounds:: Normal
Extremity Edema:: None: Bilateral:
[2024-02-14 11:55] VITALS: BP 116/64
--- NOTE | 2024-02-14 13:56 | W.DCSUMMARY ---
Discharge Summary
Discharge Data
Date of Admission: 02/11/24
Date of Discharge: 02/14/24
-
Pending Results: No
Hospital Course
Principal Diagnosis:
Mechanical fall likely due to orthostatic hypotension
Acute on chronic coccyx pain following fall without fracture
Urinary tract infection with E. coli.
Chronic Diagnoses:�
Hypertension
Chronic Hyponatremia
Syndrome of inappropriate ADH
Benign paroxysmal positional vertigo
Anxiety/Depression, on venlafaxine
Gastroesophageal reflux disease
Consultations:�
Nephrology
Procedures:�
None
Clinical course:�
This is a 78-year-old female, with past medical history as stated above, who presented with dizziness, resulting in mechanical fall.
Problem 1:
Dizziness likely due to Orthostatic Hypotension, resulting in mechanical fall without fracture.
Her CT head and CT Cervical spine showed no acute abnormality or fracture.
She complained of acute on chronic coccyx pain, x-ray did not show any fracture.
Her coccyx pain improved during her hospital stay.
Maria D stocking was started this admission which she can continue going forward.
She was cleared by PT OT to return home with home health.
Problem 2:
Urinary tract infection with E. coli.
She received Levaquin for 2 days while in the hospital and she can continue with Levaquin for 1 more day after discharge (total 3 days).
As for the rest of her medical problems, they were stable during her hospital stay.
Discharge Plan
-
Patient Disposition: Home with Home Care
Discharge Diagnosis/Procedures: Orthostatic hypotension;
urinary tract infection with E coli
Condition: Fair
Diet: As tolerated and Restrict fluids to 48 oz
Activity: As tolerated
Driving Restrictions: As prior to admission
Activity Restrictions/Additional Instructions:
Continue MARIA D Stockings
Referrals:
Jody Cervantes MD [Family Provider] - in less than 1 week
Additional Discharge Medication Instructions: Continue Levaquin for 1 more day
Prescriptions:
New
levofloxacin 750 mg tablet
750 mg PO DAILY 1 Days Qty: 1 0RF
Continued
latanoprost 0.005 % drops
1 drp BOTH EYES HS
venlafaxine 37.5 mg capsule,extended release 24hr
37.5 mg PO HS
Rx Instructions:
TAKEN W/ 75MG = 112.5MG
venlafaxine 75 mg capsule,extended release 24hr
75 mg PO HS
Rx Instructions:
TAKEN W/ 37.5MG = 112.5MG
pantoprazole 40 mg tablet,delayed release (DR/EC)
40 mg PO QPM
fluticasone propionate 50 mcg/actuation spray,suspension
1 spray INTRANASAL DAILY PRN (Reason: congestion)
acetaminophen [Tylenol] 325 mg Tablet
650 mg PO Q4HPRN PRN (Reason: mild pain)
sucralfate [Carafate] 1 gram Tablet
1 g PO DAILY@1000
rizatriptan 10 mg Tablet
0 mg PO .COMPLEX
Rx Instructions:
take 1 tab at onset of headache; if no relief may repeat 1 tab after at least 2 hrs; max = 3 tabs/24 hr
cyanocobalamin (vitamin B-12) 1,000 mcg Tablet
1,000 mcg PO NOON
cholecalciferol (vitamin D3) [Vitamin D3] 25 mcg (1,000 unit) Tablet
25 mcg PO NOON
Align (B.infantis) 4 mg Capsule
4 mg PO NOON
Prolia 60 mg/mL Syringe
60 mg SC [id number]
Discharge Orders:
Discharge Patient (As Directed); Ordered 02/14/24
Ordered By: Carly Hammre
Discharge Date and Time
Print Language: PERSIAN
== END 2024-02-14 14:48 | disposition home health service (06) | DRG 312 ==
LOC: 4 EAST ACU 17:40
PROVIDERS: Physician Assistant Medical; Registered Nurse; ADMITTING PHYSICIAN Internal Medicine; CONSULT PHYSICIAN Internal Medicine; EMERGENCY PHYSICIAN Emergency Medicine; FAMILY PHYSICIAN Internal Medicine Geriatric Medicine
DX: I95.1 Orthostatic hypotension (principal); E22.2 Syndrome of inappropriate secretion of antidiuretic hormone; N39.0 Urinary tract infection, site not specified; I10 Essential (primary) hypertension; K21.9 Gastro-esophageal reflux disease without esophagitis; F41.9 Anxiety disorder, unspecified; F32.A Depression, unspecified; B96.20 Unspecified Escherichia coli [E. coli] as the cause of diseases classified elsewhere; M54.2 Cervicalgia; R51.9 Headache, unspecified; R31.0 Gross hematuria; M53.3 Sacrococcygeal disorders, not elsewhere classified; R13.10 Dysphagia, unspecified; H81.10 Benign paroxysmal vertigo, unspecified ear; M81.0 Age-related osteoporosis without current pathological fracture; W19.XXXA Unspecified fall, initial encounter; Y93.E1 Activity, personal bathing and showering; Y92.091 Bathroom in other non-institutional residence as the place of occurrence of the external cause; Z88.1 Allergy status to other antibiotic agents; Z88.0 Allergy status to penicillin; Z88.2 Allergy status to sulfonamides
CPT/HCPCS: 51701; 70450; 72125; 72220; 80048; 80053; 81003; 81015; 82040; 82533; 83735; 83930; 83935; 84300; 84443; 84484; 85025; 85027; 87077; 87086; 87186; 93005; 96361; 96374; 97163; 97166; 99285

== ENCOUNTER → 2024-02-17 13:54 | Outpatient (REF) | payer MEDICARE, OTHER, SELFPAY | LOC: HWRCS 13:54 | PROVIDERS: ATTENDING PHYSICIAN Internal Medicine Cardiovascular Disease; FAMILY PHYSICIAN Internal Medicine Geriatric Medicine | DX: R07.9 Chest pain, unspecified (principal); I10 Essential (primary) hypertension; R55 Syncope and collapse | CPT/HCPCS: 93306 ==

== ENCOUNTER → 2024-03-10 11:12 | Outpatient (REF) | payer MEDICARE, OTHER, SELFPAY | LOC: PAVMRI 11:12 | PROVIDERS: ATTENDING PHYSICIAN Anesthesiology; FAMILY PHYSICIAN Internal Medicine Geriatric Medicine | DX: M54.12 Radiculopathy, cervical region (principal) | CPT/HCPCS: 72141 ==

== ENCOUNTER 2024-10-28 16:18 | Inpatient (IN) | payer MEDICARE, OTHER, SELFPAY ==
[2024-10-27] VITALS (8 sets, daily range): BP systolic 139–195; BP diastolic 70–83; BMI 19.3
[2024-10-27 11:12] LABS: Glucose - Point of Care 102 mg/dl (70-99)
--- NOTE | 2024-10-27 11:12 | CON.NEURO ---
Addendum entered and electronically signed by Sanjay Collins MD 10/27/24 17:01:
Studies reviewed.
I have personally examined the patient. I reviewed and agree with the RESEARCH DIETITIAN's Note.
My addenda:
Awake, alert, interactive. No acute distress.
Speech intact.
Follows 2-step requests w/o difficulty. No tremor.
Extra-ocular movements grossly intact.
Facial movements full and symmetric. Hearing intact to normal conversational volume.
Normal UE movements bilaterally.
Neck: full ROM.
Chest: no dyspnea
Heart: no JVD
Ext: (-) Clubbing, (-) Cyanosis, (-) Edema
IMPRESSIONS/RECOMMENDATIONS:
Abrupt onset of right arm and leg paresis, now resolved
Most likely secondary to TIA/ stroke
Although not a TNK candidate, provide loading doses for Clopidogrel and aspirin
Goal BP < 220/120 for first 24 hours, then normotension
Likely will need lunchroom monitor as outpatient with 'Assert-IQ' implantable monitor
check MRI of brain for understanding of diagnosis
rehab evaluations although asymmptomatic currently
D/W patient
All questions answered.
Will continue to follow patient.
Original Note:
Documented by User: Patti Guillen NP 10/27/24 15:07
Neuro Assessment/Plan
Assessment
Patient is an 79 year old female with past medical history of hypertension, hyponatremia, migraines, anxiety and BPPV who presents to [facility] from [facility] on 10/27/2024 with right-sided weakness and speech difficulty.
Head CT: No evidence of acute intracranial abnormality. ASPECT score: 10
Brain perfusion:
CBF <30% Volume: 0 cc (estimate of ischemic core)
Tmax >6 second Volume: 0 cc (critically hypoperfused tissue)
CBF/Tmax Mismatch Volume: 0 cc (ischemic penumbra)
CBF/Tmax Mismatch Ratio: Not applicable
Hypoperfusion Index (Tmax >10s/Tmax >6s): Not applicable (predicts rate of collateral flow, infarct growth, and clinical outcome)
CBV Index (rCBV in Tmax >6s): 0
CTA head/neck: No evidence for intracranial large vessel occlusion. Moderate calcification of the left carotid bulb and extending into the proximal left ICA and ECA. Measured diameter reduction of 41%, unlikely to be hemodynamically significant.
Mild calcification of the right carotid bulb and proximal right ICA, with less than 25% diameter reduction. No significant narrowing of the vertebral or basilar arteries.
Plan
Impression: abrupt onset of right hemiparesis and dysarthria most likely due to TIA as symptoms improved and therefore not TNK candidate, cannot rule out CVA, patient also has history of migraine therefore complex migraine in differential
-check MRI brain without contrast to evaluate for stroke
-continue aspirin 81 mg and clopidogrel 75 mg daily for 21 days followed by monotherapy with aspirin
-check hemoglobin A1C. Goal is normoglycemia.
-check LDL with goal LDL <70 may need to start statin therapy
-PT/OT/ST evaluations
-continue neurochecks and NIHSS per unit guidelines
-stroke education material to be provided
All questions encouraged and answered, plan of care discussed with Dr. Collins, Dr. Gardner, nurse and patient
Consultation
Order
Date of Consultation: 10/27/24
Requesting Provider: Dr. Roger Gardner
Reason for Consult: stroke alert
Subjective/Objective
Subjective Data
Date of Service: October 27, 2024
Patient is a right-handed 79 year old female with past medical history of hypertension, hyponatremia, migraines, anxiety and BPPV who presents to [facility] from [facility] on 10/27/2024 with right-sided weakness and speech difficulty. The patient
awoke this morning at 8:30 am in her normal state of health and went back to sleep. When she awoke at 10 am she noted right hemiparesis and slurred speech. She tried to ambulate with no success. She fell multiple times. Complaining of mild
headache. No history of same. Not on antiplatelet medication or anticoagulation. EMS report her RUE was flaccid and RLE was weak, they also noted dysarthria. In ED her initial blood pressure was 195/83. Her NIHSS was originally 5 for right
hemiparesis and dysarthria. She was taken to head CT and CTA head/neck did not show any acute intracranial abnormalities or LVO. After her scan her symptoms improved and therefore did not receive TNK.
Was seen by our neurology service for evaluation of migraines in April of 2019. Adapted from neurology note by Dr. Collins:
'R-Handed
Headaches 'all my life' started in childhood then continued until unclear time-frame.
'In college I took too many Excedrin leading to gastric ulcer.'
Scotoma in vision then resolves after unclear time-frame.
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
Prior to presentation to this hospital: started in 2014 with L-sided neck pains, increasing intensity over time
Start in neck then into L side of face and then into L eye
2018 pulled muscle in L-side of neck
Followed by: admission to this hospital for syncope
In shower, turned head, then fell to the floor; unable to stand, was able to pull self into seated position
LOC for time frame unclear (? minutes), did happen in 2018 with hyponatremia
Trigger for headache: Nitrates
Frequency: for falling and LOC= twice; for headache per week= 5/days; uses Sumatriptan 1/2 tab 2x/week; ocular migraines 2x/week
Duration of symptoms: 30 mins with medications
Associated symptoms: + Photophobia, phonophobia, nausea, emesis
Worsening w/: unclear to patient
Improving w/: Sumatriptan, ILESI at C7-T1 (for first few days only)
Unchanged by: Acetaminophen
Quality: throbbing, aching
Intensity: worsening, usually 8/10, max 10/10
Prior: Ortho., PCP
Previous meds: Acetaminophen, Sumatriptan
IMPRESSION / RECOMMENDATIONS:
Abrupt change in headache control
Differential Diagnosis: chronic daily headache; intractable migraine
Recommendations:
initiate headache preventative Venlafaxine
switch homeopathic-dosed Sumatriptan to Rizatriptan as needed
patient will need headache calendars for clarification of frequency
need records from primary care physician regarding other therapies
Syncope
Differential diagnosis: Orthostasis vs. cardiogenic etiology
Recommendations:
check orthostatics
[facility] and [facility] will discuss with patient
Lack of mental clarity
Ddx: unclear if this represents pseudo-dementia
Recommendation:
check blood work for potential causes'
Objective Data
Patient Allergies
amoxicillin (From Augmentin) Allergy (Verified 02/18/23 09:11)
DIARRHEA
caffeine Allergy (Verified 02/18/23 09:11)
ABDOMINAL PAIN
cephalexin (From Keflex) Allergy (Verified 02/18/23 09:11)
Nausea / Vomiting
clavulanic acid (From Augmentin) Allergy (Verified 02/18/23 09:11)
DIARRHEA
grass pollen Allergy (Verified 02/18/23 09:11)
Unknown
mold Allergy (Verified 02/18/23 09:11)
Unknown
Sulfa (Sulfonamide Antibiotics) Allergy (Verified 02/18/23 09:11)
HEADACHE
Tetracyclines Allergy (Verified 02/18/23 09:11)
Nausea / Vomiting
CVA Assessment
Onset of Stroke Symptoms
Onset of symptoms known: Yes
Date of onset of symptoms: 10/27/24
Time of onset of symptoms: 10:00
Time pt last seen normal is known: Yes
Date last time pt seen normal: 10/27/24
Time last time pt seen normal: 08:30
NIH Stroke Score
Level of Consciousness: 0 - Alert
LOC Questions: 0-Answers both correctly
LOC Commands: 0-Performs both correctly
Best Horizontal Gaze: 0-Normal
Visual Read: 0=Normal, no visual loss
Facial Palsy: 0=Normal, symmetrical
Motor - Right Arm: 1=Drift < 10 seconds
Motor - Left Arm: 0=No drift 10 seconds
Motor - Right Le-No drift 5 seconds
Motor - Left Le-No drift 5 seconds
Limb Ataxia: 0-Absent
Sensation: 0-Normal
Best Language: 0-No aphasia
Dysarthria: 0-Normal
Extinction and Inattention: 0-No abnormality
NIH Total Score:: 1
Tenecteplase Contraindications
Inclusion and Exclusion criteria reviewed: Yes
IAT Contraindications: NIHSS < 6
Modified [place] Score (MRS)
-
Modified [place] Scale (mRS): No significant disability. Able to carry out usual activities.
Score: 1
Physical Exam
-
General: No Apparent Distress, Comfortable and Appears Stated Age
HEENT: Normocephalic, Atraumatic and Anicteric
Neck: Full Range of Motion
Respiratory: No Dyspnea
Cardiac: No JVD
GI: Non-distended
Skin: Unremarkable
Extremities: No Clubbing, No Cyanosis and No Edema
Psych: Unremarkable
Extended Neurological Exam
Mood & Affect: Mood Unremarkable
Attention Span & Concentration: Awake, Alert, Interactive and No Difficulty with 2 Step Request
Memory: Unremarkable
Tremor: Hand Tremor Absent and Head Tremor Absent
Speech: Quality Unremarkable, Quantity Unremarkable and Rate of Production Unremarkable
Cranial Nerve II: Left Eye: Visual Read Intact
Cranial Nerve II: Right Eye: Visual Read Intact
Cranial Nerves III, IV, : Extraocular Movement: Extraocular Movement Full in all Directions
Cranial Nerve VII: Facial Symmetry: Normal Facial Symmetry
Cranial Nerve VIII: Hearing: Unremarkable Hearing to Normal Conversational Volume
Cranial Nerve XI: Shoulder Shrug: Unremarkable
Muscle Strength, Overall: Spontaneously Moves
Pronator Drift: Other (Initially had drift to RUE/RLE but after CT improved)
Deep Tendon Reflexes: Other (2+ at biceps, absent everywhere else)
Data Reviewed
-
CT-A: Report Reviewed and Image Reviewed
CT-Perfusion: Report Reviewed and Image Reviewed
CT Head: Report Reviewed and Image Reviewed
MRI Head: Ordered
Labs: Report Reviewed
Lipid Profile: Ordered
HgbA1C: Ordered
Reviewed with: Physician, Nurse and Patient
Old Records: Summarized
Medications
-
Home Medications
�Medication �Instructions �Recorded
fluticasone propionate 50 1 spray intranasal DAILY PRN 03/31/22
mcg/actuation nasal congestion
spray,suspension
latanoprost 0.005 % eye drops 1 drp BOTH EYES HS 03/31/22
pantoprazole 40 mg tablet,delayed 40 mg PO QPM 03/31/22
release
venlafaxine 37.5 mg 37.5 mg PO HS 03/31/22
capsule,extended release 24 hr
venlafaxine 75 mg capsule,extended 75 mg PO HS 03/31/22
release 24 hr
Bifidobacterium infantis 4 mg 4 mg PO NOON 02/11/24
capsule (Align (B.infantis))
acetaminophen 325 mg tablet 650 mg PO Q4HPRN PRN mild pain 02/11/24
(Tylenol)
cholecalciferol (vitamin D3) 25 25 mcg PO NOON 02/11/24
mcg (1,000 unit) tablet (Vitamin
D3)
cyanocobalamin (vitamin B-12) 1,000 mcg PO NOON 02/11/24
1,000 mcg tablet
denosumab 60 mg/mL subcutaneous 60 mg SC [id number] 02/11/24
syringe (Prolia)
rizatriptan 10 mg tablet 0 mg PO .COMPLEX 02/11/24
sucralfate 1 gram tablet (Carafate) 1 g PO DAILY@1000 02/11/24
levofloxacin 750 mg tablet 750 mg PO DAILY 1 day #1 tab 02/14/24
Past History
Past History
ED Past Medical History: GERD, HTN, Psychiatric (depression, anxiety) and Other (Chronic neck issues, Duodenitis, hyponatremia)
ED Past Surgical History: Orthopedic (orthovisc injections, ILESI to C7-T1 x 3)
Family/Social History
Tobacco: Non-smoker
Alcohol: None
Personal:
Living: assisted living
Employment: Retired
Family History: Other (reviewed and non-contributory)

Documented by User: Sanjay Collins MD 10/27/24 16:35
CVA Assessment
NIH Stroke Score
NIH Total Score:: 1
Modified [place] Score (MRS)
-
Score: 1
--- NOTE | 2024-10-27 11:19 | ED.CVA ---
History of Present Illness
General
Chief Complaint: CVA/TIA Symptoms
Source: patient and ambulance crew
Exam Limitations: none
Time Seen by Provider: 10/27/24 11:14
Onset of Stroke Symptoms
Onset of symptoms known: Yes
Date of onset of symptoms: 10/27/24
Time of onset of symptoms: 08:30
History of Present Illness
History of Present Illness:
79-year-old female lives independently at [facility]. Woke up at 8:00 in her normal state. Had breakfast. [place] fine at that time. Went to bed at 830. This is not unusual for her. She then woke up at 10 AM and noted weakness to her right
side. She tried to ambulate with no success. She fell multiple times. Complaining of mild headache. No history of same. No thinners. On medics history patient was significantly slurred to her speech and had a dense right hemiparesis that
seemed to improve some. Speech improved significantly per the medics.
Past History
Past History
ED Past Medical History: GERD, HTN, Psychiatric (depression, anxiety) and Other (Chronic neck issues, Duodenitis, hyponatremia)
ED Past Surgical History: Orthopedic (orthovisc injections, ILESI to C7-T1 x 3)
Social History
Tobacco: Non-smoker
Alcohol: None
Personal:
Living: assisted living
Employment: Retired
Family History
Family History: Other (reviewed and non-contributory)
Review of Systems
Review of Systems
All Other Systems: Not applicable
Respiratory: Reports no symptoms
Cardiac: Reports no symptoms
ABD/GI: Reports no symptoms
Phy Exam
Physical Exam
Physical Exam:
GENERAL: Alert and oriented in no apparent distress. Normocephalic atraumatic
EYE: Orbits normal.
NECK: Supple, nontender
ENT: Pharynx without erythema
CARDIAC: Regular rate and rhythm without any obvious murmurs.
LUNGS: Clear breath sounds,normal
ABDOMEN: Soft, without focal tenderness or distention
NEUROLOGICAL: Alert and oriented , speech appears normal. Cranial nerves II through XII intact. Eye confrontation normal. She has a right arm drift. Significant weakness to the right leg.
SKIN: Warm and dry, no rash or lesion, no discoloration, skin intact.
MUSCULOSKELETAL: No edema,no deformity.Good color
PSYCH: Normal and appropriate interaction.
Course
Orders/Labs/Results
Orders:
Orders
10/27/24 11:14
CT BRAIN PERF STROKE ALERT Urgent
Comment:
Reason For Exam: Right sided weakness
CT HEAD STROKE ALERT W/o Cont Urgent
Comment:
Reason For Exam: Right sided weakness
CT HEAD/NECK ANG STROKE ALERT Urgent
Comment:
Reason For Exam: Right-sided weakness
Cardiac Monitoring- Treatment ONCE
Pulse Ox/cont/shift [RESP] Stat
Quantity: 1
10/27/24 11:15
Electrocardiogram (*1) Stat
Reason for Study: Other
Other Reason for Exam: neuro symptoms
EKG- Treatment ONCE
10/27/24 11:17
Basic Metabolic Panel Urgent
Complete Blood Count/With Diff Urgent
PTT Urgent
Prothrombin Time Urgent
10/27/24 11:40
Aspirin Chewable [Low Strength Aspirin] 324 mg PO NOW STA
Clopidogrel Bisulfate [Plavix] 600 mg PO NOW STA
10/27/24 11:43
Clopidogrel Bisulfate [Plavix] 300 mg PO NOW STA
10/27/24 11:47
Mag Hydrox/Al Hydrox/Simeth [Maalox] 30 ml .ROUTE .STK-MED ONE
10/27/24 11:52
Mag Hydrox/Al Hydrox/Simeth [Maalox] 30 ml PO NOW STA
10/27/24 12:28
Admit/Transfer Patient As Directed
Co-Sign Provider:
Level of Care: Observation services
Assign to:: Telemetry
Physician / Group: solomon
Diagnosis: cva
Reason for Telemetry: CVA/TIA
Date to Stop Telemetry: 10/30/24
Time to Stop Telemetry: 11:00
PRN Pain Medication Management As Directed
May give lesser potent ordered pain med per pt: Yes
preference::
Protocol:: Medication orders for pain may be administered in a
manner that supports deferring to patient preference
when the pt is:
- Requesting an ordered lesser potent pain medication.
Least to most potent pain medications are defined
as: acetaminophen < NSAID < tramadol < opioids
(morphine, oxycodone, hydromorphone).
- Requesting a lesser dose of the same medication IF
ORDERED.
- Requesting a less intrusive route of administration
if both routes are prescribed by the provider (PO <
IV).
10/27/24 12:29
Code Status As Directed
Resuscitation Status: Do not resuscitate
Reached after discussion with pt or family/Healthcare POA: Yes
DNR Bracelet Application ONCE
10/27/24 13:37
Urinalysis Reflex To Culture Routine
Date Specimen was Collected: 10/27/24
Time Specimen was Collected: 13:38
10/30/24 11:00
DC Protocol for Telemetry ONCE
Abnormal Lab Results
10/27/24 10/27/24
11:11 11:17
WBC 13.0 H 10^3/uL
(4.8-10.8)
Hct 36.8 L %
(37.0-47.0)
MPV 10.8 H fL
(7.4-10.4)
Abs Immat Gran (auto) 0.1 H 10^3/uL
(0-0.05)
Absolute Neuts (auto) 9.9 H 10^3/uL
(1.4-6.5)
Absolute Monos (auto) 1.0 H 10^3/uL
(0.1-0.6)
Neutrophils % 76.8 H %
(42.2-75.2)
Lymphocytes % 14.3 L %
(20.5-51.1)
Sodium 130 L mmol/L
(135-145)
Chloride 97 L mmol/L
(98-107)
BUN 22 H mg/dl
(7-17)
Creatinine 0.5 L mg/dL
(0.6-1.0)
POC Glucose 102 H mg/dl
(70-99)
10/27/24 11:17
10/27/24 11:17
Vital Signs
Initial and Last Documented VS:
Initial Vital Signs
Temp Pulse Resp
98.1 F 91 16
10/27/24 11:10 10/27/24 11:10 10/27/24 11:10
Last Documented Vital Signs
Temp Pulse Resp BP Pulse Ox
98.1 F 75 16 177/82 97
10/27/24 11:10 10/27/24 13:00 10/27/24 12:00 10/27/24 13:00 10/27/24 13:04
MDM/Problems Addressed
Differential Diagnosis Includes:
Wake up from nap stroke. Symptoms have improved some. Prehospital stroke alert called. CTA perfusion scan all pending. Neurology involved.
*Pulse Oximetry
Patient hypoxic: no (97)
*EKG
Interpreted by ED Provider?: Yes
Interpretation: abnormal
Comparison EKG: changes noted
Heart Rate: 90
Rate: normal
Rhythm: sinus
[place]: normal axis
Interval: normal interval
QRS Pattern: normal QRS
Ischemia: non-specific ST changes
*Live In Housekeeper Interpretation
Rate: normal
Interpretation: normal
Heart Rate: 88
Rhythm: sinus
*Critical Care Note
Total Time (30-74mins, 75-104mins- exclusive of procedures): 40
Data Reviewed
Review of Other/Old Records Reveals: Labs, Records and Testing
Update Note
Update Note:
Patient was rechecked multiple times. Clearly had improvement in symptoms. Able to straight leg raise well. Speech normal. Multiple discussions with daughter.
ED Attending Note
-
Portions of this chart may have been created with voice recognition software.� Occasional wrong word or��sound alike� substitutions may have occurred due to the inherent limitations of voice recognition software.
Discharge Plan
Departure
Patient Disposition: Admit
Date of Disposition: 10/27/24
Time of Disposition: 11:41
Presentation/result/management discussed w/ accepting MD/DO: Neuro
Discharge Problem:
Acute CVA
Interventions
Interventions:
*Risk Screen - Suicide Last Done: 10/27/24 11:19
*General Assessment Last Done: 10/27/24 11:10
*Neglect/Abuse Screening Last Done: 10/27/24 11:19
*ED- Fall Risk Assessment Last Done: 10/27/24 11:19
*ED COVID-19 Vaccine History Last Done: 10/27/24 11:19
ED- Pulmonary Assessment Last Done: 10/27/24 11:20
ED- Neurological Assessment Last Done: 10/27/24 12:00
ED- Cardiac Assessment Last Done: 10/27/24 11:20
ED Swallowing Screen Last Done: 10/27/24 11:46
[2024-10-27 11:34] LABS: Hematocrit 36.8 % (37.0-47.0); Hemoglobin 12.8 g/dL (12.0-16.0); Mean Corp Hgb Conc. 34.8 g/dL (33.0-37.0); Mean Corpuscular Volume 87.4 fL (81.0-99.0); Nucleated Red Blood Cells % 0 %; Platelet Count 254 10^3/uL (130-400); Red Cell Dist. Width 13.2 % (11.5-14.5)
[2024-10-27 11:43] LABS: INR 0.97; PT 13.2 Sec (11.4-14.6)
[2024-10-27 11:44] LABS: APTT 28.3 Sec (23.4-35.0)
[2024-10-27] MEDS: LOW STRENGTH ASPIRIN 324 MG PO (11:48)
[2024-10-27] MEDS: PLAVIX 300 MG PO (11:48)
[2024-10-27] MEDS: MAALOX 30 ML PO (11:52)
[2024-10-27 11:54] LABS: Blood Urea Nitrogen 22 mg/dl (7-17); Calcium 9.5 mg/dl (8.4-10.2); Carbon Dioxide 28 mmol/L (22-30); Chloride 97 mmol/L (98-107); Glucose 99 mg/dl (70-99); Potassium 4.2 mmol/L (3.5-5.1); Sodium 130 mmol/L (135-145); eGFR > 60.00
--- NOTE | 2024-10-27 12:08 | HPS.HSE ---
Addendum entered and electronically signed by Selvin Altamirano MD 10/27/24 12:53:
This is an addendum to the H&P written by Destinee Rivas on 10/27/2024. �Patient seen and examined independently with COAL SCREENER.
79-year-old female past medical history of hypertension, chronic hyponatremia, benign positional vertigo, anxiety/depression, GERD, migraines, presenting from independent living at [facility] for weakness on the right side at 10 AM. �Last seen
normal 8:30 AM. �She had multiple falls with head injury. �Mild headache. �Medics noted slurred speech and right hemiparesis that improved somewhat.
Blood pressure currently 190 systolic. �Patient states her blood pressure normally around 120.
Labs show leukocytosis of 13. �Chronic hyponatremia stable at 130.
CT head shows no acute abnormality. �CTA head and neck shows no evidence of large intracranial vessel occlusion. �Mild calcification of right carotid bulb and proximal right ICA less than 25% duction. �Moderate calcification of the left carotid bulb
extending to the proximal left ICA and ECA diameter reduction 41%.
Patient with likely acute CVA with improving symptoms. �Aspirin Plavix. Check MRI brain. �Check A1c and lipid panel. �Permissive hypertension for 24 hours. �As needed labetalol for blood pressure greater than 220/110. �Neurology following.
Original Note:
Family Physician
-
Family Physician: NO INTERVIEW UNKNOWN
Chief Complaint
-
right sided weakness
History of Present Illness
79-year-old female with pMH for GERD, HTN, depression, anxiety, hyponatremia lives independently at [facility] presented to us with right sided weakness since she got up this morning. she attempted to walk but fell four times hitting head on the
bed. Complaining of mild headache. denied numbness, tingling. denied fever, chills, chest pain, sob. denied abdominal pain, n,v,d. denied dysuria or hematuria.
concern for TIA. Received aspirin, Plavix in ER. Admitting for further management
Medical History
Past Medical History
Past Medical History: Reports Other
Additional Past Medical History:
depression, glaucoma, anxiety, GERD, atrial fib, asthma, hemorrhoids, hiatal hernia
Past Surgical History: Reports None and Other
Social History
Tobacco: Non-smoker
Alcohol: None
Drug: None
Living: Alone
Family History
Family History: Not pertinent
Allergies / Home Medications
Allergies reflects when Allergies were last updated in [facility].
Home Medications with original date entered in [facility]
Allergy/Medication List:
Allergies
Allergy/AdvReac Type Severity Reaction Status Date / Time
amoxicillin (From Augmentin) Allergy DIARRHEA Verified 02/18/23 09:11
caffeine Allergy ABDOMINAL Verified 02/18/23 09:11
PAIN
cephalexin (From Keflex) Allergy Nausea / Verified 02/18/23 09:11
Vomiting
clavulanic acid (From Allergy DIARRHEA Verified 02/18/23 09:11
Augmentin)
grass pollen Allergy Unknown Verified 02/18/23 09:11
mold Allergy Unknown Verified 02/18/23 09:11
Sulfa (Sulfonamide Allergy HEADACHE Verified 02/18/23 09:11
Antibiotics)
Tetracyclines Allergy Nausea / Verified 02/18/23 09:11
Vomiting
Home Medications
fluticasone propionate 50 mcg/actuation nasal spray,suspension 1 spray intranasal DAILY PRN congestion 03/31/22
latanoprost 0.005 % eye drops 1 drp BOTH EYES HS 03/31/22
pantoprazole 40 mg tablet,delayed release 40 mg PO QPM 03/31/22
venlafaxine 37.5 mg capsule,extended release 24 hr 37.5 mg PO HS 03/31/22
venlafaxine 75 mg capsule,extended release 24 hr 75 mg PO HS 03/31/22
Bifidobacterium infantis 4 mg capsule (Align (B.infantis)) 4 mg PO NOON 02/11/24
acetaminophen 325 mg tablet (Tylenol) 650 mg PO Q4HPRN PRN mild pain 02/11/24
cholecalciferol (vitamin D3) 25 mcg (1,000 unit) tablet (Vitamin D3) 25 mcg PO NOON 02/11/24
cyanocobalamin (vitamin B-12) 1,000 mcg tablet 1,000 mcg PO NOON 02/11/24
denosumab 60 mg/mL subcutaneous syringe (Prolia) 60 mg SC [id number] 02/11/24
rizatriptan 10 mg tablet 0 mg PO .COMPLEX 02/11/24
sucralfate 1 gram tablet (Carafate) 1 g PO DAILY@1000 02/11/24
levofloxacin 750 mg tablet 750 mg PO DAILY 1 day #1 tab 02/14/24
Review of Systems
-
Constitutional: Reports No Symptoms
EENT: Reports No Symptoms
Respiratory: Reports No Symptoms
Cardiac: Reports No Symptoms
Abdomen/GI: Reports No Symptoms
: Reports No Symptoms
Musculoskeletal: Reports No Symptoms
Skin: Reports No Symptoms
Neurological: Reports Headache and Weakness
Endocrine: Reports No Symptoms
Hematologic/Lymphatic: Reports No Symptoms
Psych: Reports No Symptoms
Physical Exam
Vital Signs
Vital Signs
Temp Pulse Resp
98.1 F 91 16
10/27/24 11:10 10/27/24 11:10 10/27/24 11:10
Physical Exam
General: Well Developed, Well Nourished and No Apparent Distress
HEENT: NormoCephalic, Moist mucous membranes and Atraumatic
Respiratory: Clear
Cardiac: S1/S2 and Regular Rhythm; No Murmur or Rub
GI: Soft, Non Tender, Non Distended and Normal Bowel Sounds; No Organomegaly
Rectal: Deferred by Provider
Musculoskeletal: No Clubbing, No Cyanosis and No Edema
Skin: No Rash
Neuro: AO x 3 and Nonfocal/grossly intact
Psych: Calm
Laboratory Results
-
10/27/24 11:17
10/27/24 11:17
Laboratory Results
PT 13.2 Sec (11.4-14.6) 10/27/24 11:17
INR 0.97 10/27/24 11:17
APTT 28.3 Sec (23.4-35.0) 10/27/24 11:17
Data Reviewed
-
CT Scan: Report Reviewed by me
Lab Data: Labs Reviewed by me
Impression/Plan
-
# Concern for CVA/TIA
-head neck CTA with the impression of No evidence for intracranial large vessel occlusion.Moderate calcification of the left carotid bulb and extending into the proximal left ICA and ECA. Measured diameter reduction of 41%, unlikely to be
hemodynamically significant.Mild calcification of the right carotid bulb and proximal right ICA, with less than 25% diameter reduction.No significant narrowing of the vertebral or basilar arteries.
-head CT with No evidence of acute intracranial abnormality.
-asa and Plavix continued
-obtain MRI of head
-PT/OT
-Obtain A1c, lipid profile
-neuro consulted.
#leukocytosis likely reactive
-wbc 13.0
- Obtain UA
#chornic hyponatremia
-na 130
-ctm
# Anxiety/Depression
Continue venlafaxine
# GERD
Continue Protonix and Carafate
DVT proph: SCDs
Code Status: DNR
[2024-10-27 13:54] LABS: Urine Character Clear (Clear)
[2024-10-27 14:36] LABS: Urine Squamous Cell 0-2 /LPF (Few); Urine Urothelial Cell 0-2 /LPF (FEW)
[2024-10-27 14:37] LABS: Urine Red Blood Cell 0-2 /HPF (0-2); Urine White Cell 0-2 /HPF (0-5)
--- NOTE | 2024-10-27 17:17 | CM ---
CM received consult, reviewed chart and met with pt bedside in ED. Pt lives alone in [place] apartment at [facility].
Independent in ADLs, personal care and ambulation at baseline. No DME>
GOODEN reviewed and signed, declined copy.
Confirms prescription coverage.
Hx [place] [facility], no hx SNF
PCP:Pt unsure of name, [facility]
Pharmacy: [facility]
CM will continue to follow for any discharge planning needs.
[2024-10-27 18:13] LABS: HDL Cholesterol 80 mg/dl; LDL Cholesterol, Calculated 112 mg/dl; Very Low Density Lipoprotein 14 mg/dl (0-30)
[2024-10-27] MEDS: LIPITOR 40 MG PO (18:29)
[2024-10-27] MEDS: PROTONIX 40 MG PO (18:29)
--- NOTE | 2024-10-27 18:32 | TRANSFER ---
pt arrives from Er via stretcher at 1710 requiring/requesting a tack puller machine into hospital bed, aaox3. admission, assessment, NIH and stroke eval and edu carried out. plan of care continues to be followed.
[2024-10-27 19:31] LABS: TSH 1.22 uIU/ml (0.47-4.68)
[2024-10-27 19:50] LABS: Vitamin B12 792 pg/ml (239-931)
[2024-10-27] MEDS: EFFEXOR XR 37.5 MG PO (21:09)
[2024-10-27] MEDS: EFFEXOR XR 75 MG PO (21:10)
[2024-10-28] VITALS (8 sets, daily range): BP systolic 131–179; BP diastolic 75–92; PULSE 94–102; O2SAT 99
[2024-10-28 07:02] LABS: Blood Urea Nitrogen 16 mg/dl (7-17); Calcium 8.6 mg/dl (8.4-10.2); Carbon Dioxide 27 mmol/L (22-30); Chloride 98 mmol/L (98-107); Estimated Creatinine Clearance 66 ml/min; Glucose 99 mg/dl (70-99); HDL Cholesterol 76 mg/dl; LDL Cholesterol, Calculated 110 mg/dl; Potassium 3.7 mmol/L (3.5-5.1); Sodium 129 mmol/L (135-145); Very Low Density Lipoprotein 13 mg/dl (0-30); eGFR > 60.00
[2024-10-28 07:12] LABS: Hematocrit 36.4 % (37.0-47.0); Hemoglobin 12.4 g/dL (12.0-16.0); Mean Corp Hgb Conc. 34.1 g/dL (33.0-37.0); Mean Corpuscular Volume 86.7 fL (81.0-99.0); Platelet Count 236 10^3/uL (130-400); Red Cell Dist. Width 13.2 % (11.5-14.5)
--- NOTE | 2024-10-28 07:31 | W.PN.NEURO.1 ---
Today's Communication / Plan
-
check MRI brain without contrast to evaluate for stroke
initiated aspirin 81 mg and clopidogrel 75 mg daily for 21 days followed by monotherapy with aspirin
started statin therapy with Atorvastatin 40 mg daily
Neuro Assessment/Plan
Assessment
Patient is an 79 year old female with past medical history of hypertension, hyponatremia, migraines, anxiety and BPPV who presents to [facility] from [facility] on 10/27/2024 with right-sided weakness and speech difficulty.
Head CT: No evidence of acute intracranial abnormality. ASPECT score: 10
Brain perfusion:
CBF <30% Volume: 0 cc (estimate of ischemic core)
Tmax >6 second Volume: 0 cc (critically hypoperfused tissue)
CBF/Tmax Mismatch Volume: 0 cc (ischemic penumbra)
CBF/Tmax Mismatch Ratio: Not applicable
Hypoperfusion Index (Tmax >10s/Tmax >6s): Not applicable (predicts rate of collateral flow, infarct growth, and clinical outcome)
CBV Index (rCBV in Tmax >6s): 0
CTA head/neck: No evidence for intracranial large vessel occlusion. Moderate calcification of the left carotid bulb and extending into the proximal left ICA and ECA. Measured diameter reduction of 41%, unlikely to be hemodynamically significant.
Mild calcification of the right carotid bulb and proximal right ICA, with less than 25% diameter reduction. No significant narrowing of the vertebral or basilar arteries.
Impression: abrupt onset of right hemiparesis and dysarthria most likely due to TIA as symptoms improved and therefore not TNK candidate, cannot rule out CVA, patient also has history of migraine therefore complex migraine in differential
Plan
check MRI brain without contrast to evaluate for stroke
initiated aspirin 81 mg and clopidogrel 75 mg daily for 21 days followed by monotherapy with aspirin
started statin therapy with Atorvastatin 40 mg daily
Will follow pending results
Subjective/Objective
Subjective Data
Date of Service: October 28, 2024
Objective Data
Vital Signs
Temp Pulse Resp BP Pulse Ox
36.7 C 82 16 135/85 96
10/28/24 04:18 10/28/24 04:18 10/28/24 04:18 10/28/24 04:18 10/28/24 04:18
Lab Results
10/28/24 05:58
10/28/24 05:58
PT 13.2 Sec (11.4-14.6) 10/27/24 11:17
INR 0.97 10/27/24 11:17
APTT 28.3 Sec (23.4-35.0) 10/27/24 11:17
Sodium 129 mmol/L (135-145) L 10/28/24 05:58
Potassium 3.7 mmol/L (3.5-5.1) 10/28/24 05:58
BUN 16 mg/dl (7-17) 10/28/24 05:58
Glucose 99 mg/dl (70-99) 10/28/24 05:58
Calcium 8.6 mg/dl (8.4-10.2) 10/28/24 05:58
LDL Cholesterol, Calc 110 mg/dl 10/28/24 05:58
Vitamin B12 792 pg/ml (239-931) 10/27/24 11:17
Patient Allergies
amoxicillin (From Augmentin) Allergy (Verified 02/18/23 09:11)
DIARRHEA
caffeine Allergy (Verified 02/18/23 09:11)
ABDOMINAL PAIN
cephalexin (From Keflex) Allergy (Verified 02/18/23 09:11)
Nausea / Vomiting
clavulanic acid (From Augmentin) Allergy (Verified 02/18/23 09:11)
DIARRHEA
grass pollen Allergy (Verified 02/18/23 09:11)
Unknown
mold Allergy (Verified 02/18/23 09:11)
Unknown
Sulfa (Sulfonamide Antibiotics) Allergy (Verified 02/18/23 09:11)
HEADACHE
Tetracyclines Allergy (Verified 02/18/23 09:11)
Nausea / Vomiting
Data Reviewed
-
MRA Head: Pending
Reviewed with: Nurse Practioner
Old Records: Summarized
Past History
Past History
ED Past Medical History: GERD, HTN, Psychiatric (depression, anxiety) and Other (Chronic neck issues, Duodenitis, hyponatremia, TIA)
ED Past Surgical History: Orthopedic (orthovisc injections, ILESI to C7-T1 x 3)
Social History
Tobacco: Non-smoker
Alcohol: None
Personal:
Living: assisted living
Employment: Retired
Family History
Family History: Other (reviewed and non-contributory)
Medications
-
Medications:
Generic Name Dose Route Start Last Admin
Trade Name Freq PRN Reason Stop Dose Admin
Acetaminophen 650 mg 10/27/24 16:04
Acetaminophen 650 Mg Rectal Suppository RECTAL 11/24/24 16:03
Q4HPRN PRN
MOSES, mild pain, or temp >100.4F
Acetaminophen 650 mg 10/27/24 16:04
Acetaminophen 325 Mg Tablet PO 11/24/24 16:03
Q4HPRN PRN
MOSES, mild pain, or temp >100.4F
Aspirin 81 mg 10/28/24 08:00
Aspirin 81 Mg Chewable Tablet PO 11/25/24 07:59
DAILY DIANE
Atorvastatin Calcium 40 mg 10/27/24 18:00 10/27/24 18:29
Atorvastatin (Lipitor) 40 Mg Tablet PO 11/24/24 17:59 40 mg
QPM DIANE Administration
Clopidogrel Bisulfate 75 mg 10/28/24 08:00
Clopidogrel 75 Mg Tablet PO 11/25/24 07:59
DAILY DIANE
Labetalol HCl 10 mg 10/27/24 16:18
Labetalol Hcl 5 Mg/1 Ml (20 Mg/4 Ml) Injection IV 10/07/25 16:17
Q6HPRN PRN
hypertension
Pantoprazole Sodium 40 mg 10/27/24 18:00 10/27/24 18:29
Pantoprazole 40 Mg Delayed Release Tablet PO 11/24/24 17:59 40 mg
QPM DIANE Administration
Sodium Chloride 0 flush 10/27/24 18:00
Sodium Chloride 0.9% (Flush) Syringe IV 11/24/24 17:59
PER PROTOCOL DIANE
Sucralfate 1 gram 10/28/24 10:00
Sucralfate 1 Gram Tablet PO 11/25/24 09:59
DAILY@1000 DIANE
Venlafaxine HCl 37.5 mg 10/27/24 22:00 10/27/24 21:09
Venlafaxine 37.5 Mg Extended Release Capsule PO 11/24/24 21:59 37.5 mg
HS DIANE Administration
Venlafaxine HCl 75 mg 10/27/24 22:00 10/27/24 21:10
Venlafaxine 75 Mg Extended Release Capsule PO 11/24/24 21:59 75 mg
HS DIANE Administration
[2024-10-28] MEDS: TYLENOL 650 MG PO (08:07)
[2024-10-28] MEDS: ATIVAN 1 MG PO (08:07)
[2024-10-28] MEDS: PLAVIX 75 MG PO (08:08)
[2024-10-28] MEDS: LOW STRENGTH ASPIRIN 81 MG PO (08:08)
--- NOTE | 2024-10-28 09:25 | W.PN.HOSP.TC ---
Today's Communication/Plan
-
Brain MRI. DAPT and statins. PT OT SP and rehab eval
Assessment / Plan
Assessment / Plan
Physical exam:
General: Acutely ill
HEENT: Normocephalic, Atraumatic and Moist Mucous Membranes
Respiratory: Clear to Auscultation; Negative Wheezes, Rales or Rhonchi
Cardiac: Regular Rhythm and S1/S2
GI: Soft, Nontender and Nondistended
Musculoskeletal: No Clubbing, No Cyanosis and No Edema
Neuro: Awake, Alert and Oriented, right-sided hemiparesis with mild weakness 4.5 out of 5, cranial nerves are intact. Dysarthria improved. Gait is impaired.
Psych: Calm
A/P:
Acute stroke:
Continue aspirin and Plavix
Start statins
Neurology consult appreciated
Seen MRI of the brain
Hemoglobin A1c 5.8
Tablet Machine Operator consult for rehab
Updated daughter, Jaci
Elevated blood pressure:
No diagnosis of hypertension prior to admission
Permissive hypertension for 24 hours
Reevaluate and if elevated will start antihypertensives tomorrow
Hyponatremia:
Check urine osmolality, urine sodium, serum osmolarity, TSH, and cortisol
Dyslipidemia:
Statins
LDL 110; goal less than 70
Leukocytosis:
Likely reactive
Monitor trend
Depression:
Continue venlafaxine
DVT prophylaxis:
SCDs
CODE STATUS:
DNR
Total time spent on today's encounter was 55 minutes which included time spent in counseling the patient/family regarding diagnosis and treatment plan as listed above, goals of care, and symptom management. Case was discussed with nursing staff,
specialists, and care coordinators/case management. All labs and imaging personally reviewed by me. Remainder the time spent in detailed review of previous records, lab data, imaging, and other medical provider documentation.
Anticipated Discharge: 24 - 48 hours
Subjective/Interval History
-
Date of Service: October 28, 2024
Patient still having weakness and her right side but overall improvement noticed. No chest pain or shortness of breath
Objective Data
-
Labs:
Laboratory Results
10/28/24
05:58
WBC 12.1 H
Hgb 12.4
Hct 36.4 L
Plt Count 236
Sodium 129 L
Potassium 3.7
Chloride 98
Carbon Dioxide 27
BUN 16
Creatinine 0.4 L
Glucose 99
Calcium 8.6
Vital Signs:
Vital Signs
Temp Pulse Resp BP Pulse Ox
97.9 F 84 16 173/90 97
10/28/24 07:10 10/28/24 07:10 10/28/24 07:10 10/28/24 07:10 10/28/24 07:10
I&O
10/27/24 10/28/24 10/29/24
06:59 06:59 06:59
Intake Total 1160 / 1160
Balance 1160 / 1160
[2024-10-28 10:12] LABS: Glycohemoglobin (HgbA1c) 5.8 % (4.0-5.6)
[2024-10-28] MEDS: CARAFATE PO (10:36)
--- NOTE | 2024-10-28 11:53 | PTOTSP ---
Speech Therapy Evaluation:
Swallowing:
Pt with acute (acute CVA) on chronic (GERD, Asthma) risk factors for dysphagia. At bedside, pt with signs concerning for mild oral dysphagia characterized by mildly prolonged mastication and reduced bolus cohesion with mild diffuse oral residue. No
overt s/sx of aspiration. Pt passed swallow screen. No chest imaging completed thus far. WBC mildly increased, pt afebrile, on room air, and without dysphagia hx.
Language:
Given Brain MRI showing small acute infarcts, the Quick Aphasia Battery (QAB) Form 1 was administered. Scores were as follows:
Word Comprehension: 10.00
Sentence Comprehension: 8.33
Word Findin.00
Grammatical Construction: 9.50
Speech Motor Programmin.00
Repetition: 10.00
Readin.00
QAB Overall: 9.23 - no aphasia
Impression: Pt earned an overall score of 9.23 on the QAB, indicative of no aphasia per parameters of this assessment. Despite normal score, mild deficits evident in connected speech with reduced length and complexity of utterances, reduced speech
rate, occasional anomia, and intermittent self-corrections. Pt also with mild dysarthria, however much improved since admission. Overall, impairment is evident, however pt is able to discuss all topics.
Recommend:
1. Continue regular solids and thin liquids
2. Medications whole in puree
3. General aspiration and reflux precautions
4. Partial assistance and supervision with intake
5. SOFTWARE ARCHITECT to follow for swallowing and for speech/language tx as appropriate
--- NOTE | 2024-10-28 16:25 | CON.MR ---
Documented by User: Kalee Johnston MD, Resident 10/29/24 11:37
Consultation
Consultation Request
Date/Time Consultation Requested: 10/28/2024
Date/Time Consultation Performed: 11/07/2024
Requesting Provider: Aguila Jones
Performing Provider: Dr. Ludwig
Reason for Consultation: CVA
Medical History
-
Chief Complaint: CVA
History of Present Illness:
Ms. Munoz is a 79-year-old female with pmh lumbar cervical, spinal stenosis, cervical OSIRIS 2 weeks ago, GERD, depression, anxiety, hyponatremia who lives independently at [facility] presented to the ED on 10/27/2024 with right sided weakness and
slurred speech since she got up morning. EMS report her RUE was flaccid and RLE was weak, they also noted dysarthria. she attempted to walk but fell four times hitting head on the bed. In ED her initial blood pressure was 195/83. Her NIHSS was
originally 5 for right hemiparesis and dysarthria. She was taken to head CT and CTA head/neck did not show any acute intracranial abnormalities or LVO. After her scan her symptoms improved and therefore did not receive TNK. Patient was started on
DAPT and statin therapy. In the hospital MRI showed multiple small foci of restricted diffusion within the left pruitt radiata/periventricular white matter consistent with small acute infarctions.
Past Medical History
Past Medical History: GERD, Hypercholesterolemia, Psychiatric (Anxiety/depression) and Other (Chronic hyponatremia, BPPV, migraines with aura, glaucoma)
Past Surgical History: Orthopedic (Right shoulder replacement, left knee surgery)
Family History
Family History: Reviewed & Not Pertinent
Social History
Functional Level Premorbidity:
Independent for all activities.
Current Funct Level: Ambulation, Transfer, UE/LE Dressing:
Bed mobility: Min a
Transfer: Min a
Ambulation: 3 feet with rolling walker min a of 2
ADL status: Eating supervision, grooming min a, toileting min A, upper extremity care min a, lower extremity care min a
Tobacco: Non-Smoker
Alcohol: None
Drug: None
Personal:
Living: Alone (Independent living [facility])
Is 24 hour care available: Yes
Number of Floors: 1
# Steps to Enter: -
# Steps to Second Floor: -
Potential First Floor Set Up: Yes
Driving: No
Employment: Retired
Allergies / Home Medications
Allergy/AdvReac Type Severity Reaction Status Date / Time
amoxicillin (From Augmentin) Allergy DIARRHEA Verified 02/18/23 09:11
caffeine Allergy ABDOMINAL Verified 02/18/23 09:11
PAIN
cephalexin (From Keflex) Allergy Nausea / Verified 02/18/23 09:11
Vomiting
clavulanic acid (From Allergy DIARRHEA Verified 02/18/23 09:11
Augmentin)
grass pollen Allergy Unknown Verified 02/18/23 09:11
mold Allergy Unknown Verified 02/18/23 09:11
Sulfa (Sulfonamide Allergy HEADACHE Verified 02/18/23 09:11
Antibiotics)
Tetracyclines Allergy Nausea / Verified 02/18/23 09:11
Vomiting
�Medication �Instructions �Recorded �Confirmed �Last Taken �Type
fluticasone propionate 50 1 spray intranasal DAILYPRN PRN 03/31/22 10/27/24 10/26/24 History
mcg/actuation nasal congestion
spray,suspension
pantoprazole 40 mg tablet,delayed 40 mg PO QPM GERD 03/31/22 10/27/24 10/26/24 History
release
venlafaxine 37.5 mg 37.5 mg PO HS Mental Health/Anxiety 03/31/22 10/27/24 10/26/24 History
capsule,extended release 24 hr
venlafaxine 75 mg capsule,extended 75 mg PO HS Mental Health/Anxiety 03/31/22 10/27/24 10/26/24 History
release 24 hr
acetaminophen 325 mg tablet 650 mg PO Q4HPRN PRN headaches 02/11/24 10/27/24 10/26/24 History
(Tylenol)
cyanocobalamin (vitamin B-12) 1,000 mcg PO NOON Supplement 02/11/24 10/27/24 10/26/24 History
1,000 mcg tablet
denosumab 60 mg/mL subcutaneous 60 mg SC [id number] Bone-Modifying 02/11/24 10/27/24 10/26/24 History
syringe (Prolia) Agent
rizatriptan 10 mg tablet 5 mg PO DAILYPRN PRN migraines 02/11/24 10/27/24 Unknown History
sucralfate 1 gram tablet (Carafate) 1 g PO DAILY Gastrointestinal Issue 02/11/24 10/27/24 10/26/24 History
latanoprost 0.005 % eye drops 1 drp LEFT EYE HS Eye Condition 10/27/24 10/27/24 10/26/24 History
Review Of Systems
-
History Source: Patient and Family
Constitutional: Reports No Symptoms; Denies Fever or Fatigue
Eye: Reports No Symptoms; Denies Blurry Vision, Tearing or Visual Field Cut
EENT: Reports No Symptoms; Denies Tearing, Sore Throat or Runny Nose
Respiratory: Reports No Symptoms; Denies Cough or Trouble Breathing
Cardiac: Reports No Symptoms; Denies Chest Pain or Palpitations
Abdomen/GI: Reports Abdominal Pain, Nausea and Constipated; Denies Vomiting or Diarrhea
: Reports No Symptoms; Denies Dysuria
Musculoskeletal: Reports No Symptoms
Neurological: Reports Weakness; Denies Dizzy or Headache
Physical Exam
Active Medications
Generic Name Dose Route Start Last Admin
Trade Name Freq PRN Reason Stop Dose Admin
Acetaminophen 650 mg 10/27/24 16:04
Acetaminophen 650 Mg Rectal Suppository RECTAL 11/24/24 16:03
Q4HPRN PRN
MOSES, mild pain, or temp >100.4F
Acetaminophen 650 mg 10/27/24 16:04 10/28/24 08:07
Acetaminophen 325 Mg Tablet PO 11/24/24 16:03 650 mg
Q4HPRN PRN Administration
MOSES, mild pain, or temp >100.4F
Aspirin 81 mg 10/28/24 08:00 10/28/24 08:08
Aspirin 81 Mg Chewable Tablet PO 11/25/24 07:59 81 mg
DAILY DIANE Administration
Atorvastatin Calcium 40 mg 10/27/24 18:00 10/27/24 18:29
Atorvastatin (Lipitor) 40 Mg Tablet PO 11/24/24 17:59 40 mg
QPM DIANE Administration
Clopidogrel Bisulfate 75 mg 10/28/24 08:00 10/28/24 08:08
Clopidogrel 75 Mg Tablet PO 11/25/24 07:59 75 mg
DAILY DIANE Administration
Labetalol HCl 10 mg 10/27/24 16:18
Labetalol Hcl 5 Mg/1 Ml (20 Mg/4 Ml) Injection IV 11/24/24 16:17
Q6HPRN PRN
hypertension
Pantoprazole Sodium 40 mg 10/27/24 18:00 10/27/24 18:29
Pantoprazole 40 Mg Delayed Release Tablet PO 11/24/24 17:59 40 mg
QPM DIANE Administration
Sodium Chloride 0 flush 10/27/24 18:00
Sodium Chloride 0.9% (Flush) Syringe IV 11/24/24 17:59
PER PROTOCOL IDANE
Sucralfate 1 gram 10/28/24 10:00 10/28/24 10:36
Sucralfate 1 Gram Tablet PO 11/25/24 09:59 Not Given
DAILY@1000 DIANE
Venlafaxine HCl 37.5 mg 10/27/24 22:00 10/27/24 21:09
Venlafaxine 37.5 Mg Extended Release Capsule PO 11/24/24 21:59 37.5 mg
HS DIANE Administration
Venlafaxine HCl 75 mg 10/27/24 22:00 10/27/24 21:10
Venlafaxine 75 Mg Extended Release Capsule PO 11/24/24 21:59 75 mg
HS DIANE Administration
Vital Signs
Temp Pulse Resp BP Pulse Ox
97.7 F 92 14 179/84 96
10/28/24 15:10 10/28/24 15:10 10/28/24 15:10 10/28/24 15:10 10/28/24 15:10
Height 5 ft 7 in
Actual Weight 55.792 kg
Body Mass Index (BMI) 19.3
Physical Exam
Physical Exam:
General Appearance/Observation: Well-developed, well-nourished individual in no apparent distress.
Pain/Comfort Assessment: Denies
Mood/Affect: Appropriate
Integumentary/Operative Site:
Pressure Ulcer: absent
Other Type of Wound: absent
Eyes: Conjunctiva/Lids: normal Pupils: pupils equal round and reactive to light and Accommodation
Ears/Nose/Throat: oral mucosa moist, throat clear. Lips/Teeth/Gums: normal
Neck: No muscle spasm or tenderness
Cardiovascular: Heart: regular rate rhythm, no murmur
Pulses: dorsalis pedis 2+ bilaterally
Respiratory: Respiratory Effort/Chest Expansion: normal Auscultation: Clear to auscultation bilaterally
Gastrointestinal: abdomen not tender, no distension, normal abdominal bowel sounds
Genitourinary: No Dillard
Rectal Exam: Deferred
Extremities: Edema: None Cyanosis: None Trophic changes: None
Neurology Exam:
Orientation: Alert, Oriented to self, Time, Place, situation
Memory: Intact immediately and at 3 minutes
Higher cortical function
Speech: Intact
Repetition: Intact
Comprehension: Intact
Two step command: Intact
Naming: Intact
Cranial Nerves:
CNII: Pupillary light reflex: Intact Visual Field: Intact
CN III, IV, : Extraocular muscles: Intact
CN V: Facial Sensation at Forehead: Intact , Maxilla: Intact, Mandible: Intact
CN VII: Facial movement: Symmetric
CN VIII: Hearing: Normal
CN IX/X: Speech & swallow: Normal, Position of Uvula: Midline
CN XI: Shoulder shrug: Symmetric
CN XII: Tongue protrusion: Midline
Sensory:
Light touch: Intact in bilateral upper and lower extremities
Pinprick: intact in upper
Reflexes:
Biceps: 2+ bilaterally
Brachioradialis: 2+ bilaterally
Triceps: 2+ bilaterally
Patellar: 2+ bilaterally
Achilles: 0 bilaterally
Babinski: Downgoing bilaterally
Clonus: None
Hieu: Negative bilaterally
Cerebellar: Dysmetria/Ataxia: None
Musculoskeletal:
Motor: (Manual muscle scale 0-5)
Muscle SA EF WE EE FF FA HF KE DF EHL PF
Right 4 4 4 4 4 4 4 4 5 5 5
Left 5 5 5 5 5 5 5 5 5 5 5
Tone: Normal in all extremities
Range of Motion: Passively within normal limits in all extremities
Lab Results
10/28/24 05:58
10/28/24 05:58
WBC 12.1 10^3/uL (4.8-10.8) H 10/28/24 05:58
Hgb 12.4 g/dL (12.0-16.0) 10/28/24 05:58
Hct 36.4 % (37.0-47.0) L 10/28/24 05:58
MCV 86.7 fL (81.0-99.0) 10/28/24 05:58
Plt Count 236 10^3/uL (130-400) 10/28/24 05:58
PT 13.2 Sec (11.4-14.6) 10/27/24 11:17
INR 0.97 10/27/24 11:17
Sodium 129 mmol/L (135-145) L 10/28/24 05:58
Potassium 3.7 mmol/L (3.5-5.1) 10/28/24 05:58
Chloride 98 mmol/L (98-107) 10/28/24 05:58
Carbon Dioxide 27 mmol/L (22-30) 10/28/24 05:58
BUN 16 mg/dl (7-17) 10/28/24 05:58
Creatinine 0.4 mg/dL (0.6-1.0) L 10/28/24 05:58
eGFR > 60.00 10/28/24 05:58
Glucose 99 mg/dl (70-99) 10/28/24 05:58
Hemoglobin A1c Cancelled 10/27/24 16:04
Calcium 8.6 mg/dl (8.4-10.2) 10/28/24 05:58
Diagnostic Results
As per HPI.
Assessment / Plan
Assessment
Patient is an 79 year old female with past medical history of hypertension, hyponatremia, migraines, anxiety and BPPV who presents to [facility] from [facility] on 10/27/2024 with right-sided weakness and speech difficulty. MRI in the hospital notable
for multiple small foci within the left pruitt radiata/periventricular white matter consistent with small acute infarcts.
Plan
PM&R PT/OT to increase independence with ADLs, improve balance, coordination, endurance, strength, mobility, community reintegration, decreased burden of care on others and family education.
CVA: Secondary prophylaxis with aspirin, statin, and blood pressure control (SBP less than 180 and diastolic less than 100 to participate with therapy for ischemic stroke). Continue to monitor neurologic status.
HTN: continue medications, monitor closely
HLD: Statin
Chronic hyponatremia: Monitor closely
Psych: Psychology consult. Monitor mood, adjust medications as needed.
Skin: monitor for pressure sores/rashes/lesions.
Pain: acetaminophen or oxycodone as needed.
Bowel: Colace and Senna, PRN bisacodyl.
Bladder: Time void, PVRs, PRN straight cath.
GI Prophylaxis: Pantoprazole
DVT Prophylaxis: SCDs
Safety: Continue to reinforce assistance with all transfers.
Code Status:DNR
Dispo : Acute rehab patient will benefit from PT/OT to increase independence with ADLs, improve balance, coordination, endurance, strength, mobility, community reintegration, decreased burden of care on others and family education.
Functional and Medical Goals: Modified Independent with ADL�s, ambulation, transfers
Summary
-
Things that must be addressed in Hospital prior to discharge:
Patient must be stable on oral pain medications.
Blood pressure must be less than 180 systolic and 100 diastolic for 24 hours before being stable for transfer to SNF/acute rehab.
Please give blood pressure parameters.
Discharge Destination: Acute rehab patient will benefit from PT/OT to increase independence with ADLs, improve balance, coordination, endurance, strength, mobility, community reintegration, decreased burden of care on others and family education
Summary of recommendations:
- Discharge Destination: Acute rehab patient will benefit from PT/OT to increase independence with ADLs, improve balance, coordination, endurance, strength, mobility, community reintegration, decreased burden of care on others and family education
Will continue to follow patient.
Thank you for allowing me to care for your patient. Please contact me with any questions or concerns.
Comments
-
This note was dictated using a voice recognition system. Please excuse any typographical errors from manager lab. If you believe there are any discrepancies, please notify our office.

Documented by User: Yakov Ludwig MD 10/29/24 22:38
Consultation
Consultation Request
Date/Time Consultation Performed: 10/29/2024
Medical History
Social History
# Steps to Enter: 0
Physical Exam
Physical Exam
Physical Exam:
General Appearance/Observation: Well-developed, well-nourished female in no apparent distress.
Pain/Comfort Assessment: Denies
Mood/Affect: Appropriate
Integumentary/Operative Site:
Pressure Ulcer: absent
Other Type of Wound: absent
Eyes: Conjunctiva/Lids: normal Pupils: pupils equal round and reactive to light and Accommodation
Ears/Nose/Throat: oral mucosa moist, throat clear. Lips/Teeth/Gums: normal
Neck: No muscle spasm or tenderness
Cardiovascular: Heart: regular rate rhythm, no murmur
Pulses: dorsalis pedis 2+ bilaterally
Respiratory: Respiratory Effort/Chest Expansion: normal Auscultation: Clear to auscultation bilaterally
Gastrointestinal: abdomen not tender, no distension, normal abdominal bowel sounds
Genitourinary: No Dillard
Rectal Exam: Deferred
Extremities: Edema: None Cyanosis: None Trophic changes: None
Neurology Exam:
Orientation: Alert, Oriented to self, Time, Place, situation
Memory: Intact immediately and at 3 minutes
Higher cortical function
Speech: Intact
Repetition: Intact
Comprehension: Intact
Two step command: Intact
Naming: Intact
Cranial Nerves:
CNII: Pupillary light reflex: Intact Visual Field: Intact
CN III, IV, : Extraocular muscles: Intact
CN V: Facial Sensation at Forehead: Intact , Maxilla: Intact, Mandible: Intact
CN VII: Facial movement: Symmetric
CN VIII: Hearing: Normal
CN IX/X: Speech & swallow: Normal, Position of Uvula: Midline
CN XI: Shoulder shrug: Symmetric
CN XII: Tongue protrusion: Midline
Sensory:
Light touch: Intact in bilateral upper and lower extremities
Pinprick: intact in upper
Reflexes:
Biceps: 2+ bilaterally
Brachioradialis: 2+ bilaterally
Triceps: 2+ bilaterally
Patellar: 2+ bilaterally
Achilles: 0 bilaterally
Babinski: Downgoing bilaterally
Clonus: None
Hieu: Negative bilaterally
Cerebellar: Dysmetria/Ataxia: None
Musculoskeletal:
Motor: (Manual muscle scale 0-5)
Muscle SA EF WE EE FF FA HF KE DF EHL PF
Right 4 4 4 4 4 4 4 4 5 5 5
Left 5 5 5 5 5 5 5 5 5 5 5
Tone: Normal in all extremities
Range of Motion: Passively within normal limits in all extremities
Diagnostic Results
As per HPI.
CTA head/neck: No evidence for intracranial large vessel occlusion. Moderate calcification of the left carotid bulb and extending into the proximal left ICA and ECA. Measured diameter reduction of 41%, unlikely to be hemodynamically significant.
Mild calcification of the right carotid bulb and proximal right ICA, with less than 25% diameter reduction. No significant narrowing of the vertebral or basilar arteries.
Brain MRI: There are multiple small foci of restricted diffusion within the left pruitt radiata/periventricular white matter consistent with small acute infarctions.
10/29/2024 TTE:
SUMMARY
1. Normal left ventricular chamber size with mild left ventricular hypertrophy. Ejection fraction 65 to 70%.
2. Mild aortic regurgitation.
3. Mild tricuspid regurgitation.
4. Compared to previous echo from January 2024, findings are similar.
Assessment / Plan
Assessment
79 year old Right handed F PMH HTN, hyponatremia, migraines, anxiety and BPPV with 10/27/2024 Right hemiparesis and speech difficulty from multiple small foci within the left pruitt radiata/periventricular white matter consistent with small acute
infarcts resulting in ADL and ambulatory dysfunction.
Plan
PM&R PT/OT to increase independence with ADLs, improve balance, coordination, endurance, strength, mobility, community reintegration, decreased burden of care on others and family education.
CVA: Secondary prophylaxis with aspirin/Plavix for 21 days followed by lifelong aspirin, statin, and blood pressure control (SBP less than 180 and diastolic less than 100 to participate with therapy for ischemic stroke). Continue to monitor
neurologic status.
- Had an echocardiogram earlier this year with no PFO and EF 60 to 65%
HTN: Lisinopril 5 mg daily, monitor closely
HLD: Statin
Chronic hyponatremia: Monitor closely. Takes hydrocortisone
Anxiety: Monitor mood, adjust venlafaxine as needed.
Skin: monitor for pressure sores/rashes/lesions.
Pain: acetaminophen as needed.
Bowel: Colace and Senna, PRN bisacodyl.
Bladder: Time void, PVRs, PRN straight cath.
GI Prophylaxis: Pantoprazole, sucralfate
DVT Prophylaxis: Mechanical and enoxaparin
Safety: Continue to reinforce assistance with all transfers.
Code Status:DNR
Dispo : Acute rehab patient will benefit from PT/OT to increase independence with ADLs, improve balance, coordination, endurance, strength, mobility, community reintegration, decreased burden of care on others and family education.
Functional and Medical Goals: Modified Independent with ADL�s, ambulation, transfers
Attending Statement: I performed a history and examined the patient today.� I reviewed the care plan with therapy, nursing, and the resident.� I agree with the history and ROS above as modified.� The physical exam and plan documented reflects my
examination and plan.� A total of 60 minutes were spent with the patient preparing for the evaluation, obtaining history, performing examination and evaluation, counseling, data review, case management, care coordination, hospital orderly, and EMR
documentation.
Summary
-
Discharge Destination: Acute rehab patient will benefit from PT/OT to increase independence with ADLs, improve balance, coordination, endurance, strength, mobility, community reintegration, decreased burden of care on others and family education
Will continue to follow patient.
Thank you for allowing me to care for your patient. Please contact me with any questions or concerns.
[2024-10-28] MEDS: PROTONIX 40 MG PO (18:05)
[2024-10-28] MEDS: LIPITOR 40 MG PO (18:05)
[2024-10-28] MEDS: LOVENOX 40 MG SC (18:05)
[2024-10-28] MEDS: EFFEXOR XR 37.5 MG PO (20:13)
[2024-10-28] MEDS: EFFEXOR XR 75 MG PO (20:13)
[2024-10-29] VITALS (7 sets, daily range): BP systolic 121–177; BP diastolic 63–92
[2024-10-29 07:55] LABS: Hematocrit 38.0 % (37.0-47.0); Hemoglobin 13.2 g/dL (12.0-16.0); Mean Corp Hgb Conc. 34.7 g/dL (33.0-37.0); Mean Corpuscular Volume 86.4 fL (81.0-99.0); Nucleated Red Blood Cells % 0 %; Platelet Count 247 10^3/uL (130-400); Red Cell Dist. Width 13.2 % (11.5-14.5)
[2024-10-29 08:26] LABS: Blood Urea Nitrogen 16 mg/dl (7-17); Calcium 8.6 mg/dl (8.4-10.2); Carbon Dioxide 27 mmol/L (22-30); Chloride 96 mmol/L (98-107); Estimated Creatinine Clearance 66 ml/min; Glucose 96 mg/dl (70-99); Potassium 3.5 mmol/L (3.5-5.1); Sodium 129 mmol/L (135-145); eGFR > 60.00
[2024-10-29] MEDS: LOW STRENGTH ASPIRIN 81 MG PO (08:26)
[2024-10-29] MEDS: PLAVIX 75 MG PO (08:26)
[2024-10-29 08:49] LABS: Cortisol, Random 0.2 ug/dl
[2024-10-29] MEDS: CARAFATE 1 GRAM PO (09:36)
[2024-10-29] MEDS: ZESTRIL 5 MG PO (09:39)
--- NOTE | 2024-10-29 10:11 | CM ---
Patient seen at bedside
PT/OT rec Acute Rehab
Referral in [facility] for [facility]
Eval by Physiatry
no pre-auth
PLAN: Acute Rehab when stable, pending bed availability
--- NOTE | 2024-10-29 10:57 | W.PN.HOSP.TC ---
Today's Communication/Plan
-
Antihypertensive. Steroids.
Assessment / Plan
Assessment / Plan
Physical exam:
General: Acutely ill
HEENT: Normocephalic, Atraumatic and Moist Mucous Membranes
Respiratory: Clear to Auscultation; Negative Wheezes, Rales or Rhonchi
Cardiac: Regular Rhythm and S1/S2
GI: Soft, Nontender and Nondistended
Musculoskeletal: No Clubbing, No Cyanosis and No Edema
Neuro: Awake, Alert and Oriented, right-sided hemiparesis with mild weakness 4.5 out of 5, cranial nerves are intact. Dysarthria improved. Gait is impaired.
Psych: Calm
A/P:
Acute stroke:
Continue aspirin and Plavix
Continue statins
Neurology consult appreciated
Seen MRI of the brain
Hemoglobin A1c 5.8
[employer] Operator consult for rehab
Updated daughter, Jaci yesterday
Plan for echocardiogram
Hypertension:
No diagnosis of hypertension prior to admission
Permissive hypertension however for the past 24 hours ended
Will start her on low-dose LORENZO inhibitor, lisinopril 5 mg p.o. daily and reevaluate
Hyponatremia:
Appears to have increased ADH physiology but also significantly low cortisol level
Will arrange for follow-up with endocrinology as outpatient
Suspected adrenal insufficiency:
Will start hydrocortisone 10 mg in the morning and 5 mg in the evening. AM Cortisol level 0.2
Will have her see Dr. Mike Ibarra as outpatient, staff electronic warfare officer.
Dyslipidemia:
Statins
LDL 110; goal less than 70
Leukocytosis:
Likely reactive
Monitor trend
Depression:
Continue venlafaxine
DVT prophylaxis:
SCDs
CODE STATUS:
DNR
Total time spent on today's encounter was 55 minutes which included time spent in counseling the patient/family regarding diagnosis and treatment plan as listed above, goals of care, and symptom management. Case was discussed with nursing staff,
specialists, and care coordinators/case management. All labs and imaging personally reviewed by me. Remainder the time spent in detailed review of previous records, lab data, imaging, and other medical provider documentation.
Anticipated Discharge: Within 24 hours
Subjective/Interval History
-
Date of Service: October 29, 2024
Patient feels better overall. Less weakness and dysarthria. No chest pain or shortness of breath
Objective Data
-
Labs:
Laboratory Results
10/29/24
07:14
WBC 11.0 H
Hgb 13.2
Hct 38.0
Plt Count 247
Sodium 129 L
Potassium 3.5
Chloride 96 L
Carbon Dioxide 27
BUN 16
Creatinine 0.4 L
Glucose 96
Calcium 8.6
Vital Signs:
Vital Signs
Temp Pulse Resp BP Pulse Ox
97.9 F 104 16 127/71 97
10/29/24 07:10 10/29/24 09:39 10/29/24 07:10 10/29/24 09:39 10/29/24 07:10
I&O
10/28/24 10/29/24 10/30/24
06:59 06:59 06:59
Intake Total 1160 / 1160 240 / 240
Balance 1160 / 1160 240 / 240
[2024-10-29] MEDS: CORTEF 10 MG PO (12:13)
--- NOTE | 2024-10-29 12:36 | W.PN.NEURO.1 ---
Today's Communication / Plan
-
Continue aspirin 81 mg and clopidogrel 75 mg daily for 21 days followed by monotherapy with aspirin
started statin therapy with Atorvastatin 40 mg daily
Neuro Assessment/Plan
Assessment
Patient is an 79 year old female with past medical history of hypertension, hyponatremia, migraines, anxiety and BPPV who presents to [facility] from [facility] on 10/27/2024 with right-sided weakness and speech difficulty.
Head CT: No evidence of acute intracranial abnormality. ASPECT score: 10
Brain perfusion: normal
CTA head/neck: No evidence for intracranial large vessel occlusion. Moderate calcification of the left carotid bulb and extending into the proximal left ICA and ECA. Measured diameter reduction of 41%, unlikely to be hemodynamically significant.
Mild calcification of the right carotid bulb and proximal right ICA, with less than 25% diameter reduction. No significant narrowing of the vertebral or basilar arteries.
Impression: abrupt onset of right hemiparesis and dysarthria most likely due to left MCA acute ischemic stroke
Plan
Continue aspirin 81 mg and clopidogrel 75 mg daily for 21 days followed by monotherapy with aspirin
started statin therapy with Atorvastatin 40 mg daily
Will follow as needed
Subjective/Objective
Subjective Data
Date of Service: October 29, 2024
Objective Data
Vital Signs
Temp Pulse Resp BP Pulse Ox
36.5 C 85 16 162/79 97
10/29/24 11:23 10/29/24 11:23 10/29/24 11:23 10/29/24 11:23 10/29/24 11:23
Lab Results
10/29/24 07:14
10/29/24 07:14
PT 13.2 Sec (11.4-14.6) 10/27/24 11:17
INR 0.97 10/27/24 11:17
APTT 28.3 Sec (23.4-35.0) 10/27/24 11:17
Sodium 129 mmol/L (135-145) L 10/29/24 07:14
Potassium 3.5 mmol/L (3.5-5.1) 10/29/24 07:14
BUN 16 mg/dl (7-17) 10/29/24 07:14
Glucose 96 mg/dl (70-99) 10/29/24 07:14
Calcium 8.6 mg/dl (8.4-10.2) 10/29/24 07:14
LDL Cholesterol, Calc 110 mg/dl 10/28/24 05:58
Vitamin B12 792 pg/ml (239-931) 10/27/24 11:17
Patient Allergies
amoxicillin (From Augmentin) Allergy (Verified 02/18/23 09:11)
DIARRHEA
caffeine Allergy (Verified 02/18/23 09:11)
ABDOMINAL PAIN
cephalexin (From Keflex) Allergy (Verified 02/18/23 09:11)
Nausea / Vomiting
clavulanic acid (From Augmentin) Allergy (Verified 02/18/23 09:11)
DIARRHEA
grass pollen Allergy (Verified 02/18/23 09:11)
Unknown
mold Allergy (Verified 02/18/23 09:11)
Unknown
Sulfa (Sulfonamide Antibiotics) Allergy (Verified 02/18/23 09:11)
HEADACHE
Tetracyclines Allergy (Verified 02/18/23 09:11)
Nausea / Vomiting
Past History
Past History
ED Past Medical History: GERD, HTN, Psychiatric (depression, anxiety) and Other (Chronic neck issues, Duodenitis, hyponatremia, TIA)
ED Past Surgical History: Orthopedic (orthovisc injections, ILESI to C7-T1 x 3)
Social History
Tobacco: Non-smoker
Alcohol: None
Personal:
Living: assisted living
Employment: Retired
Family History
Family History: Other (reviewed and non-contributory)
Medications
-
Medications:
Generic Name Dose Route Start Last Admin
Trade Name Freq PRN Reason Stop Dose Admin
Acetaminophen 650 mg 10/27/24 16:04
Acetaminophen 650 Mg Rectal Suppository RECTAL 11/24/24 16:03
Q4HPRN PRN
MOSES, mild pain, or temp >100.4F
Acetaminophen 650 mg 10/27/24 16:04 10/28/24 08:07
Acetaminophen 325 Mg Tablet PO 11/24/24 16:03 650 mg
Q4HPRN PRN Administration
MOSES, mild pain, or temp >100.4F
Aspirin 81 mg 10/28/24 08:00 10/29/24 08:26
Aspirin 81 Mg Chewable Tablet PO 11/25/24 07:59 81 mg
DAILY DIANE Administration
Atorvastatin Calcium 40 mg 10/27/24 18:00 10/28/24 18:05
Atorvastatin (Lipitor) 40 Mg Tablet PO 11/24/24 17:59 40 mg
QPM DIANE Administration
Clopidogrel Bisulfate 75 mg 10/28/24 08:00 10/29/24 08:26
Clopidogrel 75 Mg Tablet PO 11/25/24 07:59 75 mg
DAILY DIANE Administration
Enoxaparin Sodium 40 mg 10/28/24 18:00 10/28/24 18:05
Enoxaparin Sodium 40 Mg/0.4 Ml Syringe SC 11/25/24 17:59 40 mg
QPM DIANE Administration
Hydrocortisone 10 mg 10/29/24 12:00 10/29/24 12:13
Hydrocortisone 10 Mg Tablet PO 11/26/24 11:59 10 mg
DAILY DIANE Administration
Hydrocortisone 5 mg 10/29/24 22:00
Hydrocortisone 10 Mg Tablet PO 11/26/24 21:59
HS DIANE
Labetalol HCl 10 mg 10/27/24 16:18
Labetalol Hcl 5 Mg/1 Ml (20 Mg/4 Ml) Injection IV 11/24/24 16:17
Q6HPRN PRN
hypertension
Lisinopril 5 mg 10/29/24 09:00 10/29/24 09:39
Lisinopril 5 Mg Tablet PO 11/26/24 08:59 5 mg
DAILY DIANE Administration
Pantoprazole Sodium 40 mg 10/27/24 18:00 10/28/24 18:05
Pantoprazole 40 Mg Delayed Release Tablet PO 11/24/24 17:59 40 mg
QPM DIANE Administration
Sodium Chloride 0 flush 10/27/24 18:00
Sodium Chloride 0.9% (Flush) Syringe IV 11/24/24 17:59
PER PROTOCOL DIANE
Sucralfate 1 gram 10/28/24 10:00 10/29/24 09:36
Sucralfate 1 Gram Tablet PO 11/25/24 09:59 1 gram
DAILY@1000 DIANE Administration
Venlafaxine HCl 37.5 mg 10/27/24 22:00 10/28/24 20:13
Venlafaxine 37.5 Mg Extended Release Capsule PO 11/24/24 21:59 37.5 mg
HS DIANE Administration
Venlafaxine HCl 75 mg 10/27/24 22:00 10/28/24 20:13
Venlafaxine 75 Mg Extended Release Capsule PO 11/24/24 21:59 75 mg
HS DIANE Administration
[2024-10-29 13:23] LABS: Glucose - Point of Care 329 mg/dl (70-99)
--- NOTE | 2024-10-29 13:25 | W.PN.NEURO.1 ---
Addendum entered and electronically signed by Sanjay Collins MD 10/29/24 14:20:
Studies reviewed.
I have personally examined the patient. I reviewed and agree with the CARRIER WASHER's Note.
My addenda:
Awake, alert, interactive. No acute distress.
Speech intact.
Follows 2-step requests w/ mild difficulty. No tremor.
Extra-ocular movements grossly intact.
Facial movements full and symmetric. Hearing intact to normal conversational volume.
Normal UE movements bilaterally.
Neck: full ROM.
Chest: no dyspnea
Heart: no JVD
Ext: (-) Clubbing, (-) Cyanosis, (-) Edema
IMPRESSIONS/RECOMMENDATIONS:
Abrupt onset of right hemibody paresis, recurrent necessitating stroke alert
Most likely due to variable ability of feeder vessels to provide normal blood flow to already described left middle cerebral artery ischemic stroke
Patient was not a candidate for tenecteplase or intra-arterial thrombectomy due to near�complete resolution of symptoms within minutes
Continue current therapies
Avoid relative hypotension
Additional time today equals total of 50 minutes
D/W patient / family / nursing
All questions answered.
Will continue to follow as outpatient.
Original Note:
Today's Communication / Plan
-
-continue aspirin 81 mg and clopidogrel 75 mg daily for 21 days followed by monotherapy with aspirin
-started statin therapy with Atorvastatin 40 mg daily
-allow permissive hypertension would prevent sudden drops in blood pressure, encourage fluid intake
Neuro Assessment/Plan
Assessment
Patient is an 79 year old female with past medical history of hypertension, hyponatremia, migraines, anxiety and BPPV who presents to [facility] from [facility] on 10/27/2024 with right-sided weakness and speech difficulty and restroke alerted on
10/29/2024 for same symptoms.
Head CT: No evidence of acute intracranial abnormality. ASPECT score: 10
Brain perfusion: normal
CTA head/neck: No evidence for intracranial large vessel occlusion. Moderate calcification of the left carotid bulb and extending into the proximal left ICA and ECA. Measured diameter reduction of 41%, unlikely to be hemodynamically significant.
Mild calcification of the right carotid bulb and proximal right ICA, with less than 25% diameter reduction. No significant narrowing of the vertebral or basilar arteries.
Brain MRI: There are multiple small foci of restricted diffusion within the left pruitt radiata/periventricular white matter consistent with small acute infarctions.
Impression: abrupt onset of right hemiparesis and dysarthria most likely due to left MCA acute ischemic stroke, stroke alert today most likely due to recrudescence stroke caused by decreased blood pressure
Plan
-continue aspirin 81 mg and clopidogrel 75 mg daily for 21 days followed by monotherapy with aspirin
-started statin therapy with Atorvastatin 40 mg daily
-allow permissive hypertension would prevent sudden drops in blood pressure, encourage fluid intake
Will follow as needed
Subjective/Objective
Subjective Data
Date of Service: October 29, 2024
stroke alert called at 1322 for right facial droop, RUE flaccid and RLE weakness (similar symptoms she presented with). BP 126/54 HR 94. Taken to head CT. Head CT showed no acute intracranial abnormality. ASPECT score: 10. Reassessed after head CT
NIH Stroke Score
Level of Consciousness: 0 - Alert
LOC Questions: 0-Answers both correctly
LOC Commands: 0-Performs both correctly
Best Horizontal Gaze: 0-Normal
Visual Read: 0=Normal, no visual loss
Facial Palsy: 0=Normal, symmetrical
Motor - Right Arm: 0=No drift 10 seconds
Motor - Left Arm: 0=No drift 10 seconds
Motor - Right Le-No drift 5 seconds
Motor - Left Le-No drift 5 seconds
Limb Ataxia: 0-Absent
Sensation: 0-Normal
Best Language: 0-No aphasia
Dysarthria: 0-Normal
Extinction and Inattention: 0-No abnormality
NIH Total Score:: 0
Currently symptoms have resolved. BP 149/63 HR 90.
Objective Data
Vital Signs
Temp Pulse Resp BP Pulse Ox
97.7 F 85 16 162/79 97
10/29/24 11:23 10/29/24 11:23 10/29/24 11:23 10/29/24 11:23 10/29/24 11:23
Lab Results
10/29/24 07:14
10/29/24 07:14
PT 13.2 Sec (11.4-14.6) 10/27/24 11:17
INR 0.97 10/27/24 11:17
APTT 28.3 Sec (23.4-35.0) 10/27/24 11:17
Sodium 129 mmol/L (135-145) L 10/29/24 07:14
Potassium 3.5 mmol/L (3.5-5.1) 10/29/24 07:14
BUN 16 mg/dl (7-17) 10/29/24 07:14
Glucose 96 mg/dl (70-99) 10/29/24 07:14
Calcium 8.6 mg/dl (8.4-10.2) 10/29/24 07:14
LDL Cholesterol, Calc 110 mg/dl 10/28/24 05:58
Vitamin B12 792 pg/ml (239-931) 10/27/24 11:17
Patient Allergies
amoxicillin (From Augmentin) Allergy (Verified 02/18/23 09:11)
DIARRHEA
caffeine Allergy (Verified 02/18/23 09:11)
ABDOMINAL PAIN
cephalexin (From Keflex) Allergy (Verified 02/18/23 09:11)
Nausea / Vomiting
clavulanic acid (From Augmentin) Allergy (Verified 02/18/23 09:11)
DIARRHEA
grass pollen Allergy (Verified 02/18/23 09:11)
Unknown
mold Allergy (Verified 02/18/23 09:11)
Unknown
Sulfa (Sulfonamide Antibiotics) Allergy (Verified 02/18/23 09:11)
HEADACHE
Tetracyclines Allergy (Verified 02/18/23 09:11)
Nausea / Vomiting
Data Reviewed
-
CT-A: Report Reviewed and Image Reviewed
CT-Perfusion: Report Reviewed and Image Reviewed
CT Head: Report Reviewed and Image Reviewed
MRI Head: Ordered
Labs: Report Reviewed
Lipid Profile: Report Reviewed
HgbA1C: Report Reviewed
Reviewed with: Physician, Nurse, Patient and Family
Old Records: Summarized
[2024-10-29 13:32] LABS: C-Reactive Protein 8.50 mg/L (0.0-10.00)
--- NOTE | 2024-10-29 13:33 | RR ---
A Rapid Response was called on this patient, please see Rapid Response form.
Patient with daughter, at bedside. Call bateman going off. Patient and daughter stating 'something is wrong'. Upon assessment, RUE/RLE flaccid. Patient with increasing dysarthria and ataxia. NIH of 12. Patient moved from chair to bed. Blood sugar 329.
BP 126/54. LAST MODEL MAKER called, converted to stroke alert. Upon assessment, by neurology, symptoms improving. Patient brought by neurology and KNIFE OPERATOR, to CT.
--- NOTE | 2024-10-29 15:33 | FALL ---
Description of Fall:
This RN was getting report from ROLL FORGER. Fall reported by PCT, Ben Santiago. Per PCT, when ambulating patient from commode back to bed, patient's right leg gave out. Patient did have right sided weakness s/p CVA. This RN did assess patient post
fall. NIH 4. Patient denies injury. Patient did not hit head. This RN will continue to assess.
Injuries Noted:
No injuries noted. Patient denies head strike.
Action Taken:
Neuro check--NIH 4. Continue to assess.
Name of Provider Notified:
[2024-10-29] MEDS: LOVENOX 40 MG SC (18:04)
[2024-10-29] MEDS: PROTONIX 40 MG PO (18:04)
[2024-10-29] MEDS: LIPITOR 40 MG PO (18:04)
[2024-10-29] MEDS: TYLENOL 650 MG PO (18:15)
--- NOTE | 2024-10-29 18:28 | PTCARENOTE ---
Patient is now complaining of 8/10 shoulder pain. Bruise noted upon assessment. Dr. Shah notified. Requesting right shoulder xray.
[2024-10-29] MEDS: CORTEF 5 MG PO (20:06)
[2024-10-29] MEDS: EFFEXOR XR 37.5 MG PO (20:06)
[2024-10-29] MEDS: EFFEXOR XR 75 MG PO (20:06)
--- NOTE | 2024-10-29 20:30 | PTCARENOTE ---
Addendum entered by Talat Mir RN 10/30/24 01:13:
Pt NIH improved to 5, with improvement in movement in RLE
Original Note:
Pt with worsening NIH, scoring a 7 when previous assessment scored a 4. Pt with a 3 point gain in her NIH, mainly due to decreased movement in her RLE. Pt had similar and more severe symptoms earlier in the day, in which a rapid and stroke alert
was called. RN notified provider, and then reached out to continuous towel roller neurologist. Vital signs within normal range: BP - 121/65; HR - 84. SpO2 - 98. inbound call center representative neurologist recommend encourage fluid intake, and continuing current therapy. RN made pt
aware of the neurologist's recommendation. Fluids provided at bedside. Will continue to monitor.
[2024-10-30] VITALS (8 sets, daily range): BP systolic 116–170; BP diastolic 62–77; PULSE 88; O2SAT 98–100
[2024-10-30] MEDS: TYLENOL 650 MG PO (02:59)
[2024-10-30] MEDS: LOW STRENGTH ASPIRIN 81 MG PO (08:18)
[2024-10-30] MEDS: PLAVIX 75 MG PO (08:18)
[2024-10-30] MEDS: ZESTRIL 5 MG PO (08:19)
--- NOTE | 2024-10-30 09:12 | PN.CDI ---
CDI
- -
CDI:
Physician Documentation Request
Admit Date: 10/28/24 16:18
Dear Doctor Pablo,
Please review the following and provide your response in the progress notes.
Clinical Indicators:
- Patient admit for CVA
- 10/29 PN 'Hypertension...No diagnosis of hypertension prior to admission'
- 'Permissive hypertension however for the past 24 hours ended'
- 'start her on low-dose LORENZO inhibitor, lisinopril'
Selected Entries
10/27/24
12:22 10/27/24
13:00 10/27/24
14:00
Blood pressure 195/83 177/82 181/83
Clarify which, if any of the following, is a more accurate diagnosis reflecting the type and acuity of the documented hypertension:
Essential primary hypertension only
Hypertensive Emergency - B/P is severely elevated (systolic > or = to 180 or diastolic > or = to 110) but can occur at lower levels especially in patients who did not previously have high B/P. There is usually associated organ damage. Symptoms may
include: memory loss, LOC, CVA, ME, angina, renal failure, pulmonary edema. Generally requires more aggressive treatment and a hospitalization.
Hypertensive Crisis - an acute elevation in B/P that can lead to organ damage. Broad term that is further differentiated to include urgency or emergency based on presence of organ damage.
Other (please specify)
Use of terms such as suspected, likely, concern for, or probable (associated with a specific diagnosis that is being evaluated, monitored, or treated as if it exists) are acceptable and can be coded in the inpatient setting, when documented at the
time of discharge.
Thank you,
Bob Reddy RN
CDI Specialist
Please use your independent medical judgment in providing your response.
[2024-10-30] MEDS: CARAFATE 1 GRAM PO (09:36)
[2024-10-30] MEDS: CORTEF 10 MG PO (09:37)
[2024-10-30 10:18] LABS: Hematocrit 36.3 % (37.0-47.0); Hemoglobin 12.6 g/dL (12.0-16.0)
[2024-10-30 10:39] LABS: Blood Urea Nitrogen 17 mg/dl (7-17); Calcium 8.5 mg/dl (8.4-10.2); Carbon Dioxide 24 mmol/L (22-30); Chloride 96 mmol/L (98-107); Estimated Creatinine Clearance 66 ml/min; Glucose 121 mg/dl (70-99); Potassium 3.6 mmol/L (3.5-5.1); Sodium 128 mmol/L (135-145); eGFR > 60.00
--- NOTE | 2024-10-30 10:49 | W.PN.HOSP.TC ---
Addendum entered and electronically signed by Aguila Shah MD 10/30/24 12:25:
Hypertension ruled out.
Original Note:
Today's Communication/Plan
-
IV fluids. DC LORENZO inhibitor. Repeat CT of the head
Assessment / Plan
Assessment / Plan
Physical exam:
General: Acutely ill
HEENT: Normocephalic, Atraumatic and Moist Mucous Membranes
Respiratory: Clear to Auscultation; Negative Wheezes, Rales or Rhonchi
Cardiac: Regular Rhythm and S1/S2
GI: Soft, Nontender and Nondistended
Musculoskeletal: No Clubbing, No Cyanosis and No Edema
Neuro: Awake, Alert and Oriented, right-sided hemiparesis with mild weakness 4.5 out of 5, cranial nerves are intact. Dysarthria improved. Gait is impaired.
Psych: Calm
A/P:
Recrudescence symptoms of stroke:
Likely related to hypotension
IV fluids stat with [address] of the head today
Discussed with neurology via [place] text
Repeat CT scan of the head today
Continue to monitor
Acute stroke:
Continue aspirin and Plavix
Continue statins
Neurology consult appreciated
Seen MRI of the brain
Hemoglobin A1c 5.8
Special Machine Stitcher consult for rehab
Updated daughter, Jaci yesterday
Plan for echocardiogram
Elevated blood pressure likely circumstantially related to stroke, ruled out hypertension:
Stop all antihypertensives
Hyponatremia:
Appears to have increased ADH physiology but also significantly low cortisol level
Fluid restriction
Start salt tablets
Will arrange for follow-up with endocrinology as outpatient
Suspected adrenal insufficiency:
Will start hydrocortisone 10 mg in the morning and 5 mg in the evening. AM Cortisol level 0.2
Will have her see Dr. Mike Ibarra as outpatient, senior trial attorney.
Dyslipidemia:
Statins
LDL 110; goal less than 70
Leukocytosis:
Likely reactive
Monitor trend
Depression:
Continue venlafaxine
DVT prophylaxis:
SCDs
CODE STATUS:
DNR
Total time spent on today's encounter was 55 minutes which included time spent in counseling the patient/family regarding diagnosis and treatment plan as listed above, goals of care, and symptom management. Case was discussed with nursing staff,
specialists, and care coordinators/case management. All labs and imaging personally reviewed by me. Remainder the time spent in detailed review of previous records, lab data, imaging, and other medical provider documentation.
Anticipated Discharge: 24 - 48 hours
Subjective/Interval History
-
Date of Service: October 30, 2024
Patient was doing well this morning. Shortly after evaluation patient had mild worsening weakness on the right and blood pressure was low.
Objective Data
-
Labs:
Laboratory Results
10/30/24
09:44
Hgb 12.6
Hct 36.3 L
Sodium 128 L
Potassium 3.6
Chloride 96 L
Carbon Dioxide 24
BUN 17
Creatinine 0.5 L
Glucose 121 H
Calcium 8.5
Vital Signs:
Vital Signs
Temp Pulse Resp BP Pulse Ox
97.6 F 82 16 116/62 97
10/30/24 07:49 10/30/24 07:49 10/30/24 07:49 10/30/24 10:20 10/30/24 07:49
I&O
10/29/24 10/30/24 10/31/24
06:59 06:59 06:59
Intake Total 240 / 240 720 / 720
Balance 240 / 240 720 / 720
[2024-10-30] MEDS: NSS 1000 IV (11:27)
--- NOTE | 2024-10-30 11:45 | CM ---
CM reviewed chart, patient seen bedside.
Patient for repeat head CT today, update to [facility] liaison, patient not stable for discharge today. Left VM for liaison ([phone]) if [facility] can offer patient a bed over weekend.
CM will continue to follow for all discharge planning needs.
Plan; [facility] when stable, left for liaison if they can take patient over weekend
[facility] Report: [id number]
[2024-10-30] MEDS: SODIUM CHLORIDE 1 GRAM PO (12:38)
--- NOTE | 2024-10-30 15:11 | W.CON.NEPH ---
Consultation
-
Date/Time Consultation Requested: 10/30/2024 9 AM
Date/Time Consultation Performed: 10/30/2024 10 AM
Requesting Provider: Dr. Shah
Performing Provider: Dr. Li
Reason for Consultation: Hyponatremia
Medical History
-
Chief Complaint: Hyponatremia
History of Present Illness:
88-year-old female with hypertension on no antihypertensive medications, chronic hyponatremia with baseline sodium in the high 120 range on fluid restriction alone, anxiety and depression on venlafaxine was admitted after a fall after dizziness
after a shower. She did hit her head on the wall. She was noted to be orthostatic in the emergency room. However she was not felt to have an acute stroke this was felt to be due to variability of blood flow to a prior stroke area. Given her
orthostasis cortisol in the morning was checked which was very low at 0.2. Her asked assist with management of the persistent hyponatremia. Of note, she had tried sodium chloride tablets in the past of this it caused GI upset. The patient does
not actually recall the severity of this reaction as it was many years ago.
Past Medical History
Essential Hypertension
Chronic Hyponatremia
Anxiety/Depression
GERD
BPPV
Spinal Stenosis
Glaucoma
Osteoporosis
Past Surgical History: Other (Right Shoulder Surgery Left Knee Surgery)
Social History
Tobacco: Non-Smoker
Alcohol: None
Personal:
Family History
Family History: Not Pertinent
Allergies / Home Medications
Allergy/AdvReac Type Severity Reaction Status Date / Time
amoxicillin (From Augmentin) Allergy DIARRHEA Verified 02/18/23 09:11
caffeine Allergy ABDOMINAL Verified 02/18/23 09:11
PAIN
cephalexin (From Keflex) Allergy Nausea / Verified 02/18/23 09:11
Vomiting
clavulanic acid (From Allergy DIARRHEA Verified 02/18/23 09:11
Augmentin)
grass pollen Allergy Unknown Verified 02/18/23 09:11
mold Allergy Unknown Verified 02/18/23 09:11
Sulfa (Sulfonamide Allergy HEADACHE Verified 02/18/23 09:11
Antibiotics)
Tetracyclines Allergy Nausea / Verified 02/18/23 09:11
Vomiting
�Medication �Instructions �Recorded �Confirmed �Type
fluticasone propionate 50 1 spray intranasal DAILYPRN PRN 03/31/22 10/27/24 History
mcg/actuation nasal congestion
spray,suspension
pantoprazole 40 mg tablet,delayed 40 mg PO QPM GERD 03/31/22 10/27/24 History
release
venlafaxine 37.5 mg 37.5 mg PO HS Mental Health/Anxiety 03/31/22 10/27/24 History
capsule,extended release 24 hr
venlafaxine 75 mg capsule,extended 75 mg PO HS Mental Health/Anxiety 03/31/22 10/27/24 History
release 24 hr
acetaminophen 325 mg tablet 650 mg PO Q4HPRN PRN headaches 02/11/24 10/27/24 History
(Tylenol)
cyanocobalamin (vitamin B-12) 1,000 mcg PO NOON Supplement 02/11/24 10/27/24 History
1,000 mcg tablet
denosumab 60 mg/mL subcutaneous 60 mg SC [id number] Bone-Modifying 02/11/24 10/27/24 History
syringe (Prolia) Agent
rizatriptan 10 mg tablet 5 mg PO DAILYPRN PRN migraines 02/11/24 10/27/24 History
sucralfate 1 gram tablet (Carafate) 1 g PO DAILY Gastrointestinal Issue 02/11/24 10/27/24 History
latanoprost 0.005 % eye drops 1 drp LEFT EYE HS Eye Condition 10/27/24 10/27/24 History
Review of Systems
-
No chest pain or shortness of breath
Orthostasis, chronic
Physical Exam
Vital Signs
Vital Signs
Temp Pulse Resp BP Pulse Ox
97.6 F 82 16 116/62 97
10/30/24 07:49 10/30/24 07:49 10/30/24 07:49 10/30/24 10:20 10/30/24 07:49
Lab Results
WBC 11.0 10^3/uL (4.8-10.8) H 10/29/24 07:14
RBC 4.40 10^6/uL (4.20-5.40) 10/29/24 07:14
Hgb 12.6 g/dL (12.0-16.0) 10/30/24 09:44
Hct 36.3 % (37.0-47.0) L 10/30/24 09:44
Plt Count 247 10^3/uL (130-400) 10/29/24 07:14
Sodium 128 mmol/L (135-145) L 10/30/24 09:44
Potassium 3.6 mmol/L (3.5-5.1) 10/30/24 09:44
Chloride 96 mmol/L (98-107) L 10/30/24 09:44
Carbon Dioxide 24 mmol/L (22-30) 10/30/24 09:44
BUN 17 mg/dl (7-17) 10/30/24 09:44
Creatinine 0.5 mg/dL (0.6-1.0) L 10/30/24 09:44
eGFR > 60.00 10/30/24 09:44
Glucose 121 mg/dl (70-99) H 10/30/24 09:44
Calcium 8.5 mg/dl (8.4-10.2) 10/30/24 09:44
Laboratory Tests
02/14/24 10/28/24
08:33 21:30
Sodium 129 L
Urine Osmolality 661
Urine Sodium [address] head 10/30/2024
IMPRESSION:
1. Interval increase in cytotoxic edema in the posterior left putamen and adjacent posterior white matter of the left pruitt radiata at the site of acute ischemic infarcts seen on the MRI examination performed 10/28/2024.
2. 7 mm chronic white matter infarct in the left frontal lobe pruitt radiata.
3. Severe white matter leukoaraiosis in the frontal lobes.
4. Moderate white matter leukoaraiosis in the parietal lobes.
5. Moderate bilateral temporal lobe volume loss.
Physical Exam
Patient is awake alert oriented and in no distress. Mood and affect were pleasant, insight and judgment were good. Pupils are equal round and reactive to light, extraocular movements are intact, sclera were anicteric. Hearing was normal, ears and
nose are intact. Oropharynx was clear. Neck was supple with trachea midline and no thyromegaly. Heart was regular rate and rhythm without rubs. Lower extremities without edema. Lungs were clear to auscultation bilaterally and with normal
excursion. Abdomen was soft, nontender, with normal active bowel sounds, and no hepatosplenomegaly. Skin was without rash and with normal turgor.
Data Reviewed
-
Medical Tests (Nuc Med, Echo etc): Report Reviewed by me (Echocardiogram 10/29/2024 normal EF mild TR, mild AR)
Labs: Labs Reviewed by me
Old Records: Reviewed
Assessment/Plan
-
IMP:
Mechanical fall likely 2/2 Orthostatic Hypotension
Chronic Hyponatremia
BPPV
Anxiety/Depression
GERD
Spinal Stenosis
Glaucoma
Osteoporosis
Adrenal insufficiency
Plan:
Now on hydrocortisone
Reduce sodium chloride tablets now that she will be getting mineralocorticoid effect as well
Follow-up BMP
Maintain fluid restriction 1200 cc
Discussed with patient and daughter
[2024-10-30] MEDS: LIPITOR 40 MG PO (18:07)
[2024-10-30] MEDS: PROTONIX 40 MG PO (18:07)
[2024-10-30] MEDS: LOVENOX 40 MG SC (18:08)
[2024-10-30] MEDS: SODIUM CHLORIDE 0.5 GRAM PO (19:45)
[2024-10-30] MEDS: TUMS CHEWABLE TABLET 200 MG PO (19:54)
[2024-10-30] MEDS: CORTEF 5 MG PO (22:21)
[2024-10-30] MEDS: EFFEXOR XR 75 MG PO (22:21)
[2024-10-30] MEDS: EFFEXOR XR 37.5 MG PO (22:21)
[2024-10-31] VITALS (8 sets, daily range): BP systolic 121–174; BP diastolic 71–84; PULSE 80–83; O2SAT 96–97
[2024-10-31] MEDS: PLAVIX 75 MG PO (07:30)
[2024-10-31] MEDS: CORTEF 10 MG PO (07:30)
[2024-10-31] MEDS: LOW STRENGTH ASPIRIN 81 MG PO (07:30)
[2024-10-31] MEDS: SODIUM CHLORIDE 0.5 GRAM PO ×2 (07:30→19:07)
[2024-10-31 09:42] LABS: Hematocrit 38.2 % (37.0-47.0); Hemoglobin 13.0 g/dL (12.0-16.0)
[2024-10-31 10:21] LABS: Blood Urea Nitrogen 12 mg/dl (7-17); Calcium 8.6 mg/dl (8.4-10.2); Carbon Dioxide 27 mmol/L (22-30); Chloride 98 mmol/L (98-107); Estimated Creatinine Clearance 66 ml/min; Glucose 88 mg/dl (70-99); Potassium 4.0 mmol/L (3.5-5.1); Sodium 131 mmol/L (135-145); eGFR > 60.00
[2024-10-31] MEDS: CARAFATE 1 GRAM PO (10:22)
--- NOTE | 2024-10-31 11:43 | W.PN.HOSP.TC ---
Today's Communication/Plan
-
DAPT. PT OT
Assessment / Plan
Assessment / Plan
Physical exam:
General: Acutely ill
HEENT: Normocephalic, Atraumatic and Moist Mucous Membranes
Respiratory: Clear to Auscultation; Negative Wheezes, Rales or Rhonchi
Cardiac: Regular Rhythm and S1/S2
GI: Soft, Nontender and Nondistended
Musculoskeletal: No Clubbing, No Cyanosis and No Edema
Neuro: Awake, Alert and Oriented, right-sided hemiparesis with mild weakness 4.5 out of 5, cranial nerves are intact. Dysarthria improved. Gait is impaired.
Psych: Calm
A/P:
Acute stroke:
Continue aspirin and Plavix
Continue statins
Neurology consult appreciated
Seen MRI of the brain
Hemoglobin A1c 5.8
Entry Level Recruiter consult for rehab
Updated daughter, Jaci yesterday
Plan for echocardiogram
Recrudescence symptoms of stroke:
Likely related to hypotension
Improved after fluid resuscitation
Elevated blood pressure likely circumstantially related to stroke, ruled out hypertension:
Stop all antihypertensives
Still has some elevated blood pressure at times only transiently but overall allow permissive hypertension
Hyponatremia:
Improving-today up to 131
Appears to have increased ADH physiology but also significantly low cortisol level
Fluid restriction
Started salt tablets
Nephrology consult appreciated
Will arrange for follow-up with endocrinology as outpatient
Suspected adrenal insufficiency:
Will continue hydrocortisone 10 mg in the morning and 5 mg in the evening. AM Cortisol level 0.2
Will have her see Dr. Mike Ibarra as outpatient, telemetry technician.
Dyslipidemia:
Statins
LDL 110; goal less than 70
Leukocytosis:
Likely reactive
Monitor trend
Depression:
Continue venlafaxine
DVT prophylaxis:
SCDs
CODE STATUS:
DNR
Time spent 35 minutes
Anticipated Discharge: > 48 hours
Subjective/Interval History
-
Date of Service: October 31, 2024
Patient feels tired and some stomach upset. Less focal weakness.
Objective Data
-
Labs:
Laboratory Results
10/31/24
08:36
Hgb 13.0
Hct 38.2
Sodium 131 L
Potassium 4.0
Chloride 98
Carbon Dioxide 27
BUN 12
Creatinine 0.4 L
Glucose 88
Calcium 8.6
Vital Signs:
Vital Signs
Temp Pulse Resp BP Pulse Ox
97.9 F 84 16 174/82 100
10/31/24 08:00 10/31/24 08:00 10/31/24 08:00 10/31/24 08:00 10/31/24 08:00
I&O
10/30/24 10/31/24 11/01/24
06:59 06:59 06:59
Intake Total 720 / 720 980 / 980
Balance 720 / 720 980 / 980
--- NOTE | 2024-10-31 13:17 | W.PN.NEPH.PH ---
Today's Communication / Plan
-
continue NaCl
Assessment/Plan
-
IMP:
Mechanical fall likely 2/2 Orthostatic Hypotension
Chronic Hyponatremia
BPPV
Anxiety/Depression
GERD
Spinal Stenosis
Glaucoma
Osteoporosis
Adrenal insufficiency
Plan:
continue hydrocortisone
continue sodium chloride tablets 500mg bid for now
Maintain fluid restriction 1200 cc
follow BMP
-
-
Date of Service: October 31, 2024
CC / HPI / ROS
-
Chief Complaint:
Hyponatremia
History of Present Illness:
Na up to 131
tolerating NaCl
BP stabel, slightly high
on HC for adrenal insufficiency
Review of Systems:
no CP/SOB
Labs
-
Labs:
WBC 11.0 10^3/uL (4.8-10.8) H 10/29/24 07:14
RBC 4.40 10^6/uL (4.20-5.40) 10/29/24 07:14
Hgb 13.0 g/dL (12.0-16.0) 10/31/24 08:36
Hct 38.2 % (37.0-47.0) 10/31/24 08:36
Plt Count 247 10^3/uL (130-400) 10/29/24 07:14
Sodium 131 mmol/L (135-145) L 10/31/24 08:36
Potassium 4.0 mmol/L (3.5-5.1) 10/31/24 08:36
Chloride 98 mmol/L (98-107) 10/31/24 08:36
Carbon Dioxide 27 mmol/L (22-30) 10/31/24 08:36
BUN 12 mg/dl (7-17) 10/31/24 08:36
Creatinine 0.4 mg/dL (0.6-1.0) L 10/31/24 08:36
eGFR > 60.00 10/31/24 08:36
Glucose 88 mg/dl (70-99) 10/31/24 08:36
Calcium 8.6 mg/dl (8.4-10.2) 10/31/24 08:36
Physical Exam
-
Vital Signs:
Vital Signs
Temp Pulse Resp BP Pulse Ox
98.1 F 97 14 148/71 100
10/31/24 11:00 10/31/24 11:00 10/31/24 11:00 10/31/24 11:00 10/31/24 11:00
Cardiovascular:: Regular rate and rhythm
Respiratory:: Bilateral: CTA
Lung Excursion:: Normal
Abdomen:: Nontender and Soft
Bowel Sounds:: Normal
Extremity Edema:: None: Bilateral:
[2024-10-31] MEDS: LIPITOR 40 MG PO (16:47)
[2024-10-31] MEDS: PROTONIX 40 MG PO (16:48)
[2024-10-31] MEDS: LOVENOX 40 MG SC (16:48)
[2024-10-31] MEDS: EFFEXOR XR 37.5 MG PO (21:18)
[2024-10-31] MEDS: EFFEXOR XR 75 MG PO (21:18)
[2024-10-31] MEDS: CORTEF 5 MG PO (21:18)
[2024-11-01 07:00] VITALS: BP 173/85
[2024-11-01] MEDS: LOW STRENGTH ASPIRIN 81 MG PO (07:19)
[2024-11-01] MEDS: CARAFATE 1 GRAM PO (07:19)
[2024-11-01] MEDS: CORTEF 10 MG PO (07:19)
[2024-11-01] MEDS: PLAVIX 75 MG PO (07:19)
[2024-11-01] MEDS: SODIUM CHLORIDE 0.5 GRAM PO (07:19)
--- NOTE | 2024-11-01 07:28 | W.PN.HOSP.TC ---
Today's Communication/Plan
-
Discharge planning
Assessment / Plan
Assessment / Plan
Physical exam:
General: Acutely ill
HEENT: Normocephalic, Atraumatic and Moist Mucous Membranes
Respiratory: Clear to Auscultation; Negative Wheezes, Rales or Rhonchi
Cardiac: Regular Rhythm and S1/S2
GI: Soft, Nontender and Nondistended
Musculoskeletal: No Clubbing, No Cyanosis and No Edema
Neuro: Awake, Alert and Oriented, right-sided mild weakness 4.5 out of 5, cranial nerves are intact. Dysarthria improved. Gait is impaired.
Psych: Calm
A/P:
Acute stroke:
Continue aspirin and Plavix
Continue statins
Neurology consult appreciated
Seen MRI of the brain
Hemoglobin A1c 5.8
Reviewed echocardiogram
Hopper Feeder consulted for rehab
Repeat CT head in am to confirm stability and can discharge to rehab in a.m. if bed available
Updated daughter today over the phone, Jaci
Recrudescence symptoms of stroke:
Likely related to hypotension
Improved after fluid resuscitation
Elevated blood pressure likely circumstantially related to stroke, ruled out hypertension:
Stop all antihypertensives
Still has some elevated blood pressure at times only transiently but overall allow permissive hypertension
Hyponatremia:
Fluctuating-yesterday up to 131 today back to to 128
Appears to have increased ADH physiology but also significantly low cortisol level
Fluid restriction
Started salt tablets
Nephrology consult appreciated
Suspected adrenal insufficiency:
Will continue hydrocortisone 10 mg in the morning and 5 mg in the evening. AM Cortisol level 0.2
Will have her see Dr. Mike Ibarra as outpatient, real estate investment analyst.
Will arrange for follow-up with endocrinology as outpatient
Dyslipidemia:
Statins
LDL 110; goal less than 70
Leukocytosis:
Likely reactive
Monitor trend
Depression:
Continue venlafaxine
DVT prophylaxis:
SCDs
CODE STATUS:
DNR
Time spent 35 minutes
Anticipated Discharge: Within 24 hours
Subjective/Interval History
-
Date of Service: November 01, 2024
Patient denies worsening focal weakness. She does have generalized weakness and fatigue. No chest pain or shortness of breath.
Objective Data
-
Labs:
Laboratory Results
11/01/24
06:00
Hgb Pending
Hct Pending
Sodium Pending
Potassium Pending
Chloride Pending
Carbon Dioxide Pending
BUN Pending
Creatinine Pending
Glucose Pending
Calcium Pending
Vital Signs:
Vital Signs
Temp Pulse Resp BP Pulse Ox
97.6 F 83 18 121/73 98
10/31/24 23:44 10/31/24 23:44 10/31/24 23:44 10/31/24 23:44 10/31/24 23:44
I&O
10/31/24 11/01/24 11/02/24
06:59 06:59 06:59
Intake Total 980 / 980 960 / 960
Balance 980 / 980 960 / 960
[2024-11-01 08:46] LABS: Hematocrit 36.0 % (37.0-47.0); Hemoglobin 12.6 g/dL (12.0-16.0)
[2024-11-01 09:10] LABS: Blood Urea Nitrogen 10 mg/dl (7-17); Calcium 8.1 mg/dl (8.4-10.2); Carbon Dioxide 26 mmol/L (22-30); Chloride 97 mmol/L (98-107); Estimated Creatinine Clearance 66 ml/min; Glucose 104 mg/dl (70-99); Potassium 3.5 mmol/L (3.5-5.1); Sodium 128 mmol/L (135-145); eGFR > 60.00
[2024-11-01] MEDS: TYLENOL 650 MG PO (10:54)
--- NOTE | 2024-11-01 13:02 | W.PN.NEPH.PH ---
Today's Communication / Plan
-
dc nacl
Assessment/Plan
-
IMP:
Mechanical fall likely 2/2 Orthostatic Hypotension
Chronic Hyponatremia
BPPV
Anxiety/Depression
GERD
Spinal Stenosis
Glaucoma
Osteoporosis
Adrenal insufficiency
Plan:
continue hydrocortisone
stop NaCl with hypertension
Maintain fluid restriction 1200 cc
follow BMP
-
-
Date of Service: November 01, 2024
CC / HPI / ROS
-
Chief Complaint:
Hyponatremia
History of Present Illness:
Na 128
tolerating NaCl
BP slightly high
on HC for adrenal insufficiency
Review of Systems:
no CP/SOB
headache
Labs
-
Labs:
WBC 11.0 10^3/uL (4.8-10.8) H 10/29/24 07:14
RBC 4.40 10^6/uL (4.20-5.40) 10/29/24 07:14
Hgb 12.6 g/dL (12.0-16.0) 11/01/24 08:20
Hct 36.0 % (37.0-47.0) L 11/01/24 08:20
Plt Count 247 10^3/uL (130-400) 10/29/24 07:14
Sodium 128 mmol/L (135-145) L 11/01/24 08:20
Potassium 3.5 mmol/L (3.5-5.1) 11/01/24 08:20
Chloride 97 mmol/L (98-107) L 11/01/24 08:20
Carbon Dioxide 26 mmol/L (22-30) 11/01/24 08:20
BUN 10 mg/dl (7-17) 11/01/24 08:20
Creatinine 0.4 mg/dL (0.6-1.0) L 11/01/24 08:20
eGFR > 60.00 11/01/24 08:20
Glucose 104 mg/dl (70-99) H 11/01/24 08:20
Calcium 8.1 mg/dl (8.4-10.2) L 11/01/24 08:20
Physical Exam
-
Vital Signs:
Vital Signs
Temp Pulse Resp BP Pulse Ox
97.6 F 81 18 173/85 97
11/01/24 07:00 11/01/24 07:00 11/01/24 07:00 11/01/24 07:00 11/01/24 07:20
Cardiovascular:: Regular rate and rhythm
Respiratory:: Bilateral: CTA
Lung Excursion:: Normal
Abdomen:: Nontender and Soft
Bowel Sounds:: Normal
Extremity Edema:: None: Bilateral:
[2024-11-01 14:17] VITALS: BP 124/68; PULSE 91; O2SAT 96
[2024-11-01 14:22] VITALS: BP 124/68; PULSE 92; O2SAT 96
[2024-11-01 16:24] VITALS: BP 136/64
[2024-11-01] MEDS: LIPITOR 40 MG PO (16:30)
[2024-11-01] MEDS: LOVENOX 40 MG SC (16:31)
[2024-11-01] MEDS: PROTONIX 40 MG PO (16:31)
[2024-11-01] MEDS: EFFEXOR XR 75 MG PO (21:30)
[2024-11-01] MEDS: CORTEF 5 MG PO (21:31)
[2024-11-01] MEDS: EFFEXOR XR 37.5 MG PO (21:31)
[2024-11-01] MEDS: TUMS CHEWABLE TABLET 200 MG PO (23:19)
[2024-11-01 23:31] VITALS: BP 158/81
[2024-11-02 07:05] VITALS: BP 173/81
--- NOTE | 2024-11-02 07:53 | W.PN.HOSP.TC ---
Today's Communication/Plan
-
discharge planning Acute rehab
Assessment / Plan
Assessment / Plan
Physical exam:
General: no acute distress, appears comfortable
HEENT: Normocephalic, Atraumatic and Moist Mucous Membranes
Respiratory: Clear to Auscultation; Negative Wheezes, Rales or Rhonchi
Cardiac: Regular Rhythm and S1/S2
GI: Soft, Nontender and Nondistended
Musculoskeletal: No Clubbing, No Cyanosis and No Edema
Neuro: AOx3 conversant coherent, mild right sided weakness noted (LUE stronger than RUE)
Psych: Calm
A/P: 79F HLD Depression GERD Migraine chronic hyponatremia here with CVA and Adrenal Insufficiency.
Acute stroke:
Continue aspirin and Plavix
Continue statins
Neurology consult appreciated
MRI brain appreciated multiple small acute infarctions left pruitt radiata/periventricular white matter
Hemoglobin A1c 5.8
ECHO appreciated EF 65% no significant change from prior ECHO Jan 2024
Conveyor Line Bakery Worker consult appreciated
CT Head 11/02 appreciated no acute intracranial abn. Known left pruitt radiata infarctions w/o evidence hemorrhagic conversion.
Recrudescence symptoms of stroke:
Likely related to hypotension
Improved after fluid resuscitation
permissive HTN as per neuro
Chronic Hyponatremia
Appears to have increased ADH physiology but also significantly low cortisol level
Fluid restriction
Nephrology consult appreciated maintain fluid restrictions, salt tablets stopped d/t htn, Na at baseline, outpt follow up recommended
Suspected adrenal insufficiency:
Low AM Cortisol level 0.2
cont hydrocortisone 10 mg in the morning and 5 mg in the evening.
outpt Endocrinology follow up
Dyslipidemia:
Statins
LDL 110; goal less than 70
Mild Leukocytosis:
Likely reactive
trended down
Depression:
Continue venlafaxine
DVT prophylaxis:
SCDs
CODE STATUS:
DNR
I spent a total of 40 minutes with the patient or on the floor. More than 50% of this time involved counseling and coordination of care.
Anticipated Discharge: Within 24 hours
Subjective/Interval History
-
Date of Service: November 02, 2024
No acute distress, sitting up comfortably in chair. Appears well. Denies new acute issues at this time.
Objective Data
-
Labs:
Laboratory Results
11/02/24 11/02/24
06:22 07:10
Sodium Cancelled Pending
Potassium Cancelled Pending
Chloride Cancelled Pending
Carbon Dioxide Cancelled Pending
BUN Cancelled Pending
Creatinine Cancelled Pending
Glucose Cancelled Pending
Calcium Cancelled Pending
Vital Signs:
Vital Signs
Temp Pulse Resp BP Pulse Ox
97.6 F 79 16 173/81 97
11/02/24 07:05 11/02/24 07:05 11/02/24 07:05 11/02/24 07:05 11/02/24 07:05
I&O
11/01/24 11/02/24 11/03/24
06:59 06:59 06:59
Intake Total 960 / 960 600 / 600
Balance 960 / 960 600 / 600
[2024-11-02] MEDS: CORTEF 10 MG PO (08:29)
[2024-11-02] MEDS: LOW STRENGTH ASPIRIN 81 MG PO (08:29)
[2024-11-02] MEDS: PLAVIX 75 MG PO (08:29)
[2024-11-02 09:02] LABS: Blood Urea Nitrogen 10 mg/dl (7-17); Calcium 8.5 mg/dl (8.4-10.2); Carbon Dioxide 26 mmol/L (22-30); Chloride 96 mmol/L (98-107); Estimated Creatinine Clearance 66 ml/min; Glucose 103 mg/dl (70-99); Potassium 3.4 mmol/L (3.5-5.1); Sodium 128 mmol/L (135-145); eGFR > 60.00
--- NOTE | 2024-11-02 10:39 | CM ---
Patient out of room when CM visited on . CM called to [facility] [phone], await call back to confirm bed availability. CM also left TT for attending to confirm plan. CM will continue to follow for discharge planning
needs.
Plan; Acute rehab
[2024-11-02] MEDS: CARAFATE PO (11:11)
[2024-11-02] MEDS: KCL 40 MEQ PO (11:13)
--- NOTE | 2024-11-02 12:53 | W.PN.NEPH.PH ---
Today's Communication / Plan
-
Signed off
Assessment/Plan
-
IMP:
Mechanical fall likely 2/2 Orthostatic Hypotension
Chronic Hyponatremia
BPPV
Anxiety/Depression
GERD
Spinal Stenosis
Glaucoma
Osteoporosis
Adrenal insufficiency
Plan:
continue hydrocortisone
stop NaCl with hypertension
Maintain fluid restriction 1200 cc
follow BMP
Sodium stable at her baseline
Will sign off please call if needed
She could follow-up with us outpatient once discharged from rehab
-
-
Date of Service: November 02, 2024
CC / HPI / ROS
-
Chief Complaint:
Hyponatremia
History of Present Illness:
Na 128
tolerating NaCl
BP slightly high
on HC for adrenal insufficiency
Review of Systems:
no CP/SOB
headache
Labs
-
Labs:
WBC 11.0 10^3/uL (4.8-10.8) H 10/29/24 07:14
RBC 4.40 10^6/uL (4.20-5.40) 10/29/24 07:14
Hgb 12.6 g/dL (12.0-16.0) 11/01/24 08:20
Hct 36.0 % (37.0-47.0) L 11/01/24 08:20
Plt Count 247 10^3/uL (130-400) 10/29/24 07:14
Sodium 128 mmol/L (135-145) L 11/02/24 07:54
Potassium 3.4 mmol/L (3.5-5.1) L 11/02/24 07:54
Chloride 96 mmol/L (98-107) L 11/02/24 07:54
Carbon Dioxide 26 mmol/L (22-30) 11/02/24 07:54
BUN 10 mg/dl (7-17) 11/02/24 07:54
Creatinine 0.4 mg/dL (0.6-1.0) L 11/02/24 07:54
eGFR > 60.00 11/02/24 07:54
Glucose 103 mg/dl (70-99) H 11/02/24 07:54
Calcium 8.5 mg/dl (8.4-10.2) 11/02/24 07:54
Physical Exam
-
Vital Signs:
Vital Signs
Temp Pulse Resp BP Pulse Ox
97.6 F 79 16 173/81 97
11/02/24 07:05 11/02/24 07:05 11/02/24 07:05 11/02/24 07:05 11/02/24 07:05
Cardiovascular:: Regular rate and rhythm
Respiratory:: Bilateral: CTA
Lung Excursion:: Normal
Abdomen:: Nontender and Soft
Bowel Sounds:: Normal
Extremity Edema:: None: Bilateral:
[2024-11-02 14:17] VITALS: BP 148/75
[2024-11-02 15:00] VITALS: BP 149/73
[2024-11-02] MEDS: LOVENOX 40 MG SC (17:10)
[2024-11-02] MEDS: LIPITOR 40 MG PO (17:10)
[2024-11-02] MEDS: PROTONIX 40 MG PO (17:10)
[2024-11-02] MEDS: CORTEF 5 MG PO (20:01)
[2024-11-02] MEDS: EFFEXOR XR 75 MG PO (20:02)
[2024-11-02] MEDS: EFFEXOR XR 37.5 MG PO (20:02)
[2024-11-02 23:00] VITALS: BP 129/73
[2024-11-03] MEDS: TYLENOL 650 MG PO (03:40)
[2024-11-03 07:25] VITALS: BP 172/85
[2024-11-03 07:58] LABS: Blood Urea Nitrogen 14 mg/dl (7-17); Calcium 8.4 mg/dl (8.4-10.2); Carbon Dioxide 24 mmol/L (22-30); Chloride 97 mmol/L (98-107); Estimated Creatinine Clearance 66 ml/min; Glucose 104 mg/dl (70-99); Potassium 3.9 mmol/L (3.5-5.1); Sodium 128 mmol/L (135-145); eGFR > 60.00
[2024-11-03] MEDS: PLAVIX 75 MG PO (08:33)
[2024-11-03] MEDS: CORTEF 10 MG PO (08:33)
[2024-11-03] MEDS: LOW STRENGTH ASPIRIN 81 MG PO (08:33)
[2024-11-03] MEDS: CARAFATE 1 GRAM PO (10:15)
--- NOTE | 2024-11-03 10:22 | CM ---
Bed is available at [place] today, physician made aware.
[place] [facility] rehab at [facility]
Report [phone]
--- NOTE | 2024-11-03 11:08 | W.PN.HOSP.TC ---
Today's Communication/Plan
-
discharge
Assessment / Plan
Assessment / Plan
Physical exam:
General: no acute distress, appears comfortable
HEENT: Normocephalic, Atraumatic and Moist Mucous Membranes
Respiratory: Clear to Auscultation; Negative Wheezes, Rales or Rhonchi
Cardiac: Regular Rhythm and S1/S2
GI: Soft, Nontender and Nondistended
Musculoskeletal: No Clubbing, No Cyanosis and No Edema
Neuro: AOx3 conversant coherent, mild right sided weakness noted (LUE stronger than RUE)
Psych: Calm
A/P: 79F HLD Depression GERD Migraine chronic hyponatremia here with CVA and Adrenal Insufficiency.
Acute stroke:
Continue aspirin and Plavix 21 days then ASA alone
Continue statins
Neurology consult appreciated
MRI brain appreciated multiple small acute infarctions left pruitt radiata/periventricular white matter
Hemoglobin A1c 5.8
ECHO appreciated EF 65% no significant change from prior ECHO Jan 2024
Supervisor Dock consult appreciated
CT Head 11/02 appreciated no acute intracranial abn. Known left pruitt radiata infarctions w/o evidence hemorrhagic conversion.
Recrudescence symptoms of stroke:
Likely related to hypotension
Improved after fluid resuscitation
permissive HTN as per neuro
Chronic Hyponatremia
Appears to have increased ADH physiology but also significantly low cortisol level
Fluid restriction
Nephrology consult appreciated maintain fluid restrictions, salt tablets stopped d/t htn, Na at baseline, outpt follow up recommended
Suspected adrenal insufficiency:
Low AM Cortisol level 0.2
cont hydrocortisone 10 mg in the morning and 5 mg in the evening.
outpt Endocrinology follow up
Dyslipidemia:
Statins
LDL 110; goal less than 70
Mild Leukocytosis:
Likely reactive
trended down
Depression:
Continue venlafaxine
DVT prophylaxis:
SCDs
CODE STATUS:
DNR
Medically stable for discharge Acute Rehab with outpatient follow up recommendations
discussed with patient and patient's daughter Jaci
Total Time Preparing Discharge ___40____ minutes including examination of the patient, summary of the hospital stay, instructions for continuing care to all relevant caregivers; and preparation of discharge records, prescriptions, and referral
forms if necessary.
Anticipated Discharge: Today
Subjective/Interval History
-
Date of Service: November 03, 2024
Seen and examined at bedside in no acute distress. Overall appears well. Denies new acute issues. Looking forward to Acute Rehab.
Objective Data
-
Labs:
Laboratory Results
11/03/24
06:52
Sodium 128 L
Potassium 3.9
Chloride 97 L
Carbon Dioxide 24
BUN 14
Creatinine 0.4 L
Glucose 104 H
Calcium 8.4
Vital Signs:
Vital Signs
Temp Pulse Resp BP Pulse Ox
97.8 F 82 16 172/85 98
11/03/24 07:25 11/03/24 07:25 11/03/24 07:25 11/03/24 07:25 11/03/24 07:25
I&O
11/02/24 11/03/24 11/04/24
06:59 06:59 06:59
Intake Total 600 / 600 800 / 800
Balance 600 / 600 800 / 800
[2024-11-03 11:23] VITALS: BP 139/69
--- NOTE | 2024-11-03 11:31 | W.DCSUMMARY ---
Discharge Summary
Discharge Data
Date of Admission: 10/28/24
Date of Discharge: 11/03/24
-
Pending Results: No
Discharge Plan
-
Patient Disposition: Acute Rehab Facility
Discharge Diagnosis/Procedures: Acute stroke
MRI brain appreciated multiple small acute infarctions left pruitt radiata/periventricular white matter
Adrenal Insufficiency
Chronic Hyponatremia
Condition: Fair
Diet: Regular
Additional Diets: 50 oz fluid restriction
Activity: With assistance, As tolerated and With Walker
Driving Restrictions: Not until seen by your Dr
Bathing Restrictions: None
Other Services: PT and OT
Activity Restrictions/Additional Instructions:
Follow up with primary care provider in 1 week of discharge. In 2-4 weeks of discharge, follow up with Endocrinology and Nephrology. Follow up with Neurology in 1 month of discharge.
Continue with Plavix for 14 more days (Nov 17 last day for Plavix)- this is to complete total 21 days dual antiplatelet therapy (Aspirin and Plavix) recommended for acute stroke. Continue with aspirin indefinitely or until otherwise instructed by
your healthcare provider or neurologist.
Atorvastatin has been prescribed to further reduce your risk of stroke recurrence.
Hydrocortisone prescribed to treat Adrenal Insufficiency.
Please take medications as prescribed/recommended and follow up with primary care provider and/or other healthcare provider involved in your care for refills and/or further adjustment to your medication regimen as necessary.
Referrals:
Sanjay Collins MD [Active, Neurology] - in one month
Fred Hernandez MD [Consulting Staff, Endocrinology] - in two to four weeks
Jose Li MD [Active, Nephrology] - in two to four weeks
UNKNOWN,NO INTERVIEW [Family Provider]
Prescriptions:
New
atorvastatin 40 mg Tablet
40 mg PO QPM Qty: 30 0RF
clopidogrel 75 mg Tablet
75 mg PO DAILY Qty: 14 0RF
aspirin 81 mg Tablet,Chewable
81 mg PO DAILY Qty: 30 0RF
hydrocortisone 10 mg Tablet
10 mg PO DAILY Qty: 30 0RF
hydrocortisone 10 mg Tablet
5 mg PO HS Qty: 30 0RF
Continued
venlafaxine 37.5 mg capsule,extended release 24hr
37.5 mg PO HS
Rx Instructions:
TAKEN W/ 75MG = 112.5MG
venlafaxine 75 mg capsule,extended release 24hr
75 mg PO HS
Rx Instructions:
TAKEN W/ 37.5MG = 112.5MG
pantoprazole 40 mg tablet,delayed release (DR/EC)
40 mg PO QPM
fluticasone propionate 50 mcg/actuation spray,suspension
1 spray INTRANASAL DAILYPRN PRN (Reason: congestion)
acetaminophen [Tylenol] 325 mg Tablet
650 mg PO Q4HPRN PRN (Reason: headaches)
sucralfate [Carafate] 1 gram Tablet
1 g PO DAILY
rizatriptan 10 mg Tablet
5 mg PO DAILYPRN PRN (Reason: migraines)
cyanocobalamin (vitamin B-12) 1,000 mcg Tablet
1,000 mcg PO NOON
Prolia 60 mg/mL Syringe
60 mg SC [id number]
latanoprost 0.005 % Drops
1 drp LEFT EYE HS
Discharge Orders:
Discharge Patient (As Directed); Ordered 11/03/24
Ordered By: Angeles Interiano
Discharge Date and Time
Print Language: DIVEHI
== END 2024-11-03 14:07 | DRG 65 ==
LOC: 4 WEST ACU 16:18
PROVIDERS: Hospitalist; Registered Nurse; ADMITTING PHYSICIAN Hospitalist; ATTENDING PHYSICIAN Internal Medicine; CONSULT PHYSICIAN Physical Medicine & Rehabilitation; CONSULT PHYSICIAN Psychiatry & Neurology Neurology; CONSULT PHYSICIAN Specialist; EMERGENCY PHYSICIAN Emergency Medicine
DX: I63.89 Other cerebral infarction (principal); E27.40 Unspecified adrenocortical insufficiency; E87.1 Hypo-osmolality and hyponatremia; G81.91 Hemiplegia, unspecified affecting right dominant side; D72.829 Elevated white blood cell count, unspecified; F41.9 Anxiety disorder, unspecified; F32.A Depression, unspecified; K21.9 Gastro-esophageal reflux disease without esophagitis; Z66 Do not resuscitate; G43.B0 Ophthalmoplegic migraine, not intractable; H81.10 Benign paroxysmal vertigo, unspecified ear; M48.00 Spinal stenosis, site unspecified; H40.9 Unspecified glaucoma; M81.0 Age-related osteoporosis without current pathological fracture; E78.5 Hyperlipidemia, unspecified; H54.62 Unqualified visual loss, left eye, normal vision right eye; Z79.899 Other long term (current) drug therapy; Z79.02 Long term (current) use of antithrombotics/antiplatelets; Z79.82 Long term (current) use of aspirin
CPT/HCPCS: 0042T; 70450; 70496; 70498; 70551; 73030; 80048; 80061; 81003; 81015; 82533; 82607; 82962; 83036; 83930; 83935; 84300; 84439; 84443; 85014; 85018; 85025; 85027; 85610; 85652; 85730; 86140; 87070; 92523; 92610; 93005; 93306; 97112; 97116; 97163; 97167; 97530; 97535; 99291; Q9967